=== PATIENT | female | born 1940 | race Caucasian/White ===

== ENCOUNTER → 2016-06-14 | Outpatient (CLI) | payer MEDICARE, OTHER ==
[2016-06-14 10:41] LABS: Basophils % (A) 1 %; CH 29.8; CHCM 33.6; Eosinophils # (A) 0.1 k/uL (0-0.7); Eosinophils % (A) 3 %; HCT 42.6 % (34.0-46.0); HGB 13.7 gm/dL (11.4-16.0); Luc # (Auto) 0.21; Luc % (Auto) 4; Lymphocytes # (A) 1.4 k/uL (1.0-4.8); Lymphocytes % (A) 30 %; MCH 28.8 pg (25.0-35.0); MCHC 32.2 g/dL (31.0-37.0); MCV 89.2 fL (80.0-100.0); Mean Platelet Volume 7.1; Monocytes # (A) 0.5 k/uL (0-1.0); Monocytes % (A) 10 %; Neutrophils # (A) 2.5 k/uL (1.3-7.7); Neutrophils % (A) 53 %; RBC 4.77 m/uL (3.80-5.40); RDW 13.7 % (11.5-15.5); WBC 4.8 k/uL (3.8-10.6); WBC (Perox) 5.05
[2016-06-14 11:53] LABS: Erythrocyte Sedimentation Rate 22 mm/hr (0-20)
== END ==
LOC: LABWHC1 09:45
PROVIDERS: ATTEND Internal Medicine
DX: M15.9 Polyosteoarthritis, unspecified (principal)
CPT/HCPCS: 36415; 84550; 85025; 85652; 86038; 86431

== ENCOUNTER → 2016-07-19 | Outpatient (CLI) | payer MEDICARE, OTHER ==
[2016-07-19 09:52] LABS: Basophils % (A) 0 %; CH 30.6; CHCM 34.1; Eosinophils # (A) 0.1 k/uL (0-0.7); Eosinophils % (A) 2 %; HDW 3.01; HGB 15.4 gm/dL (11.4-16.0); Luc # (Auto) 0.17; Luc % (Auto) 2; Lymphocytes % (A) 27 %; MCH 31.5 pg (25.0-35.0); MCHC 34.9 g/dL (31.0-37.0); MCV 90.2 fL (80.0-100.0); Mean Platelet Volume 6.4; Monocytes # (A) 0.6 k/uL (0-1.0); Monocytes % (A) 8 %; Neutrophils # (A) 4.4 k/uL (1.3-7.7); Neutrophils % (A) 60 %; RBC 4.88 m/uL (3.80-5.40); WBC 7.4 k/uL (3.8-10.6); WBC (Perox) 7.52
[2016-07-19 10:04] LABS: ALT 34 U/L (9-52); AST 25 U/L (14-36); Alkaline Phosphatase 109 U/L (38-126); Anion Gap 9 mmol/L; Blood Urea Nitrogen 17 mg/dL (7-17); Calcium 9.3 mg/dL (8.4-10.2); Carbon Dioxide 31 mmol/L (22-30); Chloride 102 mmol/L (98-107); Cholesterol 137 mg/dL (<200); Glucose 84 mg/dL (74-99); HDL Cholesterol 43 mg/dL (40-60); Non-African American GFR(MDRD) >60 (>60 ml/min/1.73 sqM); Potassium 5.1 mmol/L (3.5-5.1); Sodium 142 mmol/L (137-145); Total Bilirubin 0.4 mg/dL (0.2-1.3); Total Protein 7.3 g/dL (6.3-8.2); Triglycerides 139 mg/dL (<150)
[2016-07-19 10:42] LABS: Hepatitis B Core IgM Index 0.09
[2016-07-19 10:55] LABS: Hepatitis C Virus IgG Index 0.05
[2016-07-19 11:08] LABS: Hepatitis B Surface Antibody Negative (Negative); Hepatitis C Virus IgG Ab Negative (Negative)
[2016-07-19 12:56] LABS: C Reactive Protein <5.0 mg/L (<10.0)
== END | disposition home or self-care (01) ==
LOC: LABWHC1 09:01
PROVIDERS: ATTEND Internal Medicine
DX: M25.50 Pain in unspecified joint (principal); E03.9 Hypothyroidism, unspecified; I10 Essential (primary) hypertension; E78.2 Mixed hyperlipidemia
CPT/HCPCS: 36415; 80053; 80061; 84443; 85025; 86140; 86200; 86480; 86705; 86706; 86803

== ENCOUNTER → 2016-08-31 | Outpatient (CLI) | payer MEDICARE, OTHER ==
[2016-08-31 12:12] LABS: Basophils % (A) 1 %; CHCM 34.5; Eosinophils # (A) 0.2 k/uL (0-0.7); Eosinophils % (A) 2 %; HCT 42.4 % (34.0-46.0); HDW 3.04; HGB 14.4 gm/dL (11.4-16.0); Luc # (Auto) 0.12; Luc % (Auto) 2; Lymphocytes # (A) 1.8 k/uL (1.0-4.8); Lymphocytes % (A) 23 %; MCH 30.7 pg (25.0-35.0); MCV 90.4 fL (80.0-100.0); Mean Platelet Volume 6.5; Monocytes # (A) 0.4 k/uL (0-1.0); Monocytes % (A) 5 %; Neutrophils # (A) 5.3 k/uL (1.3-7.7); Neutrophils % (A) 68 %; RBC 4.69 m/uL (3.80-5.40); RDW 15.3 % (11.5-15.5); WBC 7.9 k/uL (3.8-10.6); WBC (Perox) 7.87
[2016-08-31 12:50] LABS: ALT 34 U/L (9-52); AST 32 U/L (14-36); C Reactive Protein 12.1 mg/L (<10.0); Non-African American GFR(MDRD) >60 (>60 ml/min/1.73 sqM)
[2016-08-31 14:45] LABS: Erythrocyte Sedimentation Rate 18 mm/hr (0-20)
== END | disposition home or self-care (01) ==
LOC: LABWHC1 11:09
PROVIDERS: ATTEND Internal Medicine Rheumatology
DX: M05.9 Rheumatoid arthritis with rheumatoid factor, unspecified (principal)
CPT/HCPCS: 36415; 82565; 84450; 84460; 85025; 85652; 86140

== ENCOUNTER → 2016-12-14 | Outpatient (CLI) | payer MEDICARE, OTHER ==
[2016-12-14 14:07] LABS: Basophils % (A) 1 %; CH 32.4; CHCM 34.4; Eosinophils # (A) 0.3 k/uL (0-0.7); Eosinophils % (A) 5 %; HCT 40.7 % (34.0-46.0); HDW 2.95; HGB 13.5 gm/dL (11.4-16.0); Luc # (Auto) 0.15; Luc % (Auto) 3; Lymphocytes # (A) 1.7 k/uL (1.0-4.8); Lymphocytes % (A) 30 %; MCH 31.4 pg (25.0-35.0); MCHC 33.2 g/dL (31.0-37.0); MCV 94.6 fL (80.0-100.0); Mean Platelet Volume 7.8; Monocytes # (A) 0.5 k/uL (0-1.0); Monocytes % (A) 8 %; Neutrophils % (A) 53 %; RDW 15.4 % (11.5-15.5); WBC 5.7 k/uL (3.8-10.6); WBC (Perox) 5.42
[2016-12-14 14:21] LABS: ALT 41 U/L (9-52); AST 37 U/L (14-36); C Reactive Protein 14.8 mg/L (<10.0); Non-African American GFR(MDRD) >60 (>60 ml/min/1.73 sqM)
[2016-12-14 16:00] LABS: Erythrocyte Sedimentation Rate 15 mm/hr (0-20)
== END | disposition home or self-care (01) ==
LOC: LABWHC1 13:20
PROVIDERS: ATTEND Internal Medicine Rheumatology
DX: M05.9 Rheumatoid arthritis with rheumatoid factor, unspecified (principal)
CPT/HCPCS: 36415; 82565; 84450; 84460; 85025; 85652; 86140

== ENCOUNTER → 2016-12-14 | Outpatient (CLI) | payer MEDICARE, OTHER ==
--- NOTE | 2016-12-15 11:18 | MM ---
Reason for exam: screening (asymptomatic). Last mammogram was performed 1 year ago. History: Patient is postmenopausal and history of other cancer. Family history of premenopausal breast cancer in daughter at age 40. Taking other hormone for 32 years 3 months. Physical Findings: A clinical breast exam by your physician is recommended on an annual basis and results should be correlated with mammographic findings. MG 3D Screening Mammo W/Cad Bilateral CC and MLO view(s) were taken. Prior study comparison: December 02, 2015, bilateral MG 3d screening mammo w/cad. August 21, 2013, bilateral MG screening mammo w CAD. There are scattered fibroglandular densities. Finding: There are few typically benign round calcifications in both breasts. There is no discrete abnormality. ASSESSMENT: Benign, BI-RAD 2 RECOMMENDATION: Routine screening mammogram of both breasts in 1 year.
== END | disposition home or self-care (01) ==
LOC: RADMAMWWP 13:02
PROVIDERS: ATTEND Internal Medicine
DX: Z12.31 Encounter for screening mammogram for malignant neoplasm of breast (principal)
CPT/HCPCS: 77063; G0202

== ENCOUNTER → 2017-06-19 | Outpatient (CLI) | payer MEDICARE, OTHER ==
[2017-06-19 16:01] LABS: Basophils % (A) 1 %; Eosinophils # (A) 0.2 k/uL (0-0.7); Eosinophils % (A) 3 %; HCT 40.6 % (34.0-46.0); HGB 13.8 gm/dL (11.4-16.0); Lymphocytes # (A) 1.8 k/uL (1.0-4.8); Lymphocytes % (A) 33 %; MCH 30.3 pg (25.0-35.0); MCHC 33.9 g/dL (31.0-37.0); MCV 89.3 fL (80.0-100.0); Mean Platelet Volume 7.1; Monocytes # (A) 0.3 k/uL (0-1.0); Monocytes % (A) 5 %; Neutrophils % (A) 55 %; Platelet Count 210 k/uL (150-450); RBC 4.55 m/uL (3.80-5.40); RDW 15.3 % (11.5-15.5); WBC 5.5 k/uL (3.8-10.6)
[2017-06-19 16:19] LABS: ALT 35 U/L (9-52); AST 36 U/L (14-36); C Reactive Protein 29.5 mg/L (<10.0)
[2017-06-19 17:49] LABS: Erythrocyte Sedimentation Rate 36 mm/hr (0-20)
== END | disposition home or self-care (01) ==
LOC: LABWHC1 15:23
PROVIDERS: ATTEND Internal Medicine Rheumatology
DX: M05.9 Rheumatoid arthritis with rheumatoid factor, unspecified (principal)
CPT/HCPCS: 36415; 82565; 84450; 84460; 85025; 85652; 86140

== ENCOUNTER → 2017-09-13 | Outpatient (CLI) | payer MEDICARE, OTHER ==
--- NOTE | 2017-09-13 11:49 | CT ---
EXAMINATION TYPE: CT chest w con DATE OF EXAM: 09/13/2017 COMPARISON: NONE HISTORY: Cough and weight loss CT DLP: 462 mGycm Automated exposure control for dose reduction was used. CONTRAST: CT scan of the chest is performed with IV Contrast, patient injected with 100 mL of Isovue 300. FINDINGS: LUNGS: There is a mass in the right lower lobe spiculated margins measuring approximately 5.8 x 5 x 4 .4 cm pleural extension and extensive right hilar adenopathy. Possible inflammatory change present at the posterior lateral lung base on the right. Emphysematous changes are suspected. MEDIASTINUM: There are no greater than 1 cm mediastinal lymph nodes. No pericardial effusion is see n. AORTA: No additional significant abnormality is seen. Coronary artery calcifications are present. OTHER: The spleen is thought to be enlarged. Hypodensity inferior aspect is incompletely evaluated w ithin the spleen. No adrenal mass. Liver shows low attenuation possibly due to hepatic steatosis. IMPRESSION: Findings suspicious for bronchogenic carcinoma. Suspect splenomegaly. Coronary artery di sease, emphysema. Additional findings above.
== END | disposition home or self-care (01) ==
LOC: RADCTMAIN 10:30
PROVIDERS: ATTEND Nurse Practitioner Adult Health
DX: J43.9 Emphysema, unspecified (principal); I25.10 Atherosclerotic heart disease of native coronary artery without angina pectoris; R68.83 Chills (without fever); R59.0 Localized enlarged lymph nodes
CPT/HCPCS: 82565; 84520; 71260; 36415; Q9967; 80053; 82378; 85025; 85045; 85652

== ENCOUNTER → 2017-09-23 | Outpatient (CLI) | payer MEDICARE, OTHER | END | disposition home or self-care (01) | LOC: RADPETMAIN 08:26 | PROVIDERS: ATTEND Nurse Practitioner Adult Health | DX: R91.8 Other nonspecific abnormal finding of lung field (principal); Z53.9 Procedure and treatment not carried out, unspecified reason ==

== ENCOUNTER 2017-09-27 08:44 | Inpatient (IN) | payer MEDICARE, OTHER ==
--- NOTE | 2017-09-27 11:46 | XR ---
EXAMINATION TYPE: XR chest 1V portable DATE OF EXAM: 09/27/2017 COMPARISON: CT chest from 2 weeks ago. HISTORY: Right lung mass status post biopsy and chest tube insertion. TECHNIQUE: Single frontal view of the chest is obtained. FINDINGS: There is redemonstration of right mid to lower lung lobulated mass and associated right hi lar adenopathy. There is new right-sided chest tube projecting towards lateral apex. There is suspect ed small to tiny residual right apical with chest tube in place. Left lung is clear. The cardiac silh ouette size remains within normal limits with atherosclerotic aorta. The osseous structures are int act. IMPRESSION: Residual small to tiny right apical pneumothorax with right sided small caliber chest tu be or pleural drainage catheter present after biopsy.
[2017-09-27] MEDS: HYDROcodone/APAP 5-325MG 1 EACH TAB PO PRN ×2 (12:04→22:11)
--- NOTE | 2017-09-27 12:18 | CT ---
EXAMINATION TYPE: CT chest tube insertion DATE OF EXAM: 09/27/2017 COMPARISON: CT chest 09/13/2017 HISTORY: Chest pain, pneumothorax status post lung biopsy CT DLP: 846 mGycm Automated exposure control for dose reduction was used. PROCEDURE:The anterior second intercostal space was localized using CT and the skin overlying was pre pped and draped and Lidocaine used for local anesthesia, skin rabia made with a scalpel. Using trocar technique a 9-Kiswahili catheter was introduced into the pleural space. Catheter was fixed to the skin and a sterile dressing placed. Catheter was attached to one-way valve. Hemostasis achieved. Patie nt remained in stable condition. Post procedure chest CT shows reinflation of the lung, chest tube c oursing towards the apex laterally, chest x-ray pending. IMPRESSION: Status post CT chest tube insertion. This procedure performed by the undersigned
--- NOTE | 2017-09-27 13:10 | CT ---
EXAMINATION TYPE: CT biopsy lung RT DATE OF EXAM: 09/27/2017 HISTORY: Lung mass right lower lobe COMPARISON: NONE Maximal barrier technique was utilized. The skin overlying a suitable path to the lesion was localiz ed using CT and the overlying skin was prepped and draped. Lidocaine used for local anesthesia. A s kin rabia made with a scalpel. Using CT guidance, access was gained to the lesion with a 18-gauge nee dle coaxially through 17-gauge guide. Are specimen submitted to pathology in formalin. 2 passes were performed in all. Following the procedure sizable pneumothorax was noted. Procedure chest CT performed and subsequently decision-making to perform CT-guided chest tube placeme nt. See that report. Hemostasis achieved following lung biopsy. IMPRESSION: SUCCESSFUL CT GUIDED BIOPSY. PATHOLOGY PENDING. THIS PROCEDURE WAS PERFORMED BY THE UNDERSIGNED. Po stprocedural pneumothorax.
[2017-09-27] MEDS ORDERED: traMADol 50 MG TAB PO PRN (13:11)
[2017-09-27] MEDS ORDERED: NALOXONE 0.4 MG/ML 1 ML VIAL IV PRN (13:11)
[2017-09-27] MEDS ORDERED: MORPHINE SULFATE 2 MG/ML SYRINGE IV PRN (13:11)
[2017-09-27 13:22] LABS: Mean Platelet Volume 6.7; Platelet Count 301 k/uL (150-450)
--- NOTE | 2017-09-27 13:25 | P.HPIM ---
History of Present Illness H&P Date: 09/27/17 Chief Complaint: Lung mass 76-year-old female with history of right lower lobe lung mass presented for a lung biopsy, biopsy was done by IR, after biopsy was completed patient developed pneumothorax as well as collapsed lung. A chest tube on the right side was placed. Currently patient patient is only having chest pain on the right side where the chest tube was placed. Patient was subsequently admitted to the hospital for subsequent observation and management. She was found to have a right lower lobe lung mass early this month after having chronic cough for the last 4-5 months. The cough is mainly dry. No fevers or chills. No nausea or vomiting, no abdominal pain or chest pain. No dizziness, no diarrhea , no hemoptysis. Review of Systems 12 point review of system performed, negative except for HPI Past Medical History Past Medical History: Cancer, Hyperlipidemia, Hypertension, Rheumatoid Arthritis (RA), Skin Disorder, Thyroid Disorder Additional Past Medical History / Comment(s): melanoma - skin lesion on rt cheek ,lung mass is being investigated History of Any Multi-Drug Resistant Organisms: None Reported Past Surgical History: Back Surgery, Orthopedic Surgery Additional Past Surgical History / Comment(s): skin lesion removed, lt knee replacement Past Anesthesia/Blood Transfusion Reactions: No Reported Reaction Additional Past Anesthesia/Blood Transfusion Reaction / Comment(s): no bld transfusion Past Psychological History: No Psychological Hx Reported Smoking Status: Former smoker Past Alcohol Use History: None Reported Additional Past Alcohol Use History / Comment(s): quit 2001 Past Drug Use History: None Reported - Past Family History Son(s) Family Medical History: Cancer Additional Family Medical History / Comment(s): leukemia Daughter(s) Family Medical History: Cancer Additional Family Medical History / Comment(s): breast Mother Family Medical History: Cancer Additional Family Medical History / Comment(s): lymphoma Medications and Allergies Home Medications Medication Instructions Recorded Confirmed Type Aspirin [Children's Aspirin] 81 mg PO DAILY 09/19/17 09/19/17 History Celecoxib [CeleBREX] 200 mg PO DAILY 09/19/17 09/19/17 History Cholecalciferol (Vitamin D3) 2,000 unit PO DAILY 09/19/17 09/19/17 History [Vitamin D3] Folic Acid 1 mg PO DAILY 09/19/17 09/19/17 History Levothyroxine Sodium [Synthroid] 112 mcg PO DAILY 09/19/17 09/19/17 History Methotrexate Sodium [Methotrexate] 2.5 mg PO DAILY 09/19/17 09/19/17 History Simvastatin [Zocor] 10 mg PO DAILY 09/19/17 09/19/17 History amLODIPine [Norvasc] 5 mg PO DAILY 09/19/17 09/19/17 History Allergies Allergy/AdvReac Type Severity Reaction Status Date / Time No Known Allergies Allergy Verified 09/19/17 09:27 Physical Exam Vitals: Vital Signs Temp Pulse Resp BP Pulse Ox 09/27/17 12:35 85 18 115/68 98 09/27/17 12:20 83 18 114/57 98 09/27/17 12:05 87 18 109/65 98 09/27/17 11:51 98.0 F 84 18 98/67 96 Constitutional: Thin, no acute distress, conversant, pleasant Eyes:Anicteric sclerae, moist conjunctiva, no lid-lag, PERRLA, ENMT: Oropharynx clear, no erythema, exudates Neck: Supple, FROM, no masses, or JVD, No carotid bruits, No thyromegaly Lungs: Diminished breath sounds in the right, clear on the left, right sided chest tube in place., Normal respiratory effort, no accessory muscle use Cardiovascular: Heart regular in rate and rhythm, No murmurs, gallops, or rubs, No peripheral edema Abdominal: Soft, Nontender, no guarding, rebound or rigidity, Normoactive bowel sounds, No hepatomegaly, No splenomegaly, No palpable mass Skin: Normal temperature, tone, texture, turgor, no induration, No subcutaneous nodules, No rash, lesions, No ulcers Extremities: No digital cyanosis, No clubbing, Pedal pulses intact and symmetrical, Radial pulses intact and symmetrical, No calf tenderness Psychiatric: Alert and oriented to person, place and time, appropriate affect, intact judgement Neuro: Muscles Strength 5/5 in all 4 extremities, Sensation to light touch grossly present throughout, Cranial nerves II-XII grossly intact, no focal sensory deficits Assessment and Plan Plan: #1 Lung mass, right lower lobe Biopsy taken Awaiting results Patient was scheduled to have a PET scan this Monday, contacted the radiology department, this cannot be done as an inpatient. #2 Right sided pneumothorax/collapsed lung Status post chest tube placement Consult pulmonary #3 Hyperlipidemia, Essential hypertension, Rheumatoid Arthritis (RA), Hypothyroidism: All stable Resume home meds. #4 DVT prophylaxis: Lovenox and SCDs
[2017-09-27 13:30] LABS: INR 1.1 (<1.2); Prothrombin Time 10.7 sec (9.0-12.0)
--- NOTE | 2017-09-27 13:44 | XR ---
EXAMINATION TYPE: XR chest 1V portable DATE OF EXAM: 09/27/2017 COMPARISON: Chest x-ray earlier today. HISTORY: Post biopsy pneumothorax. TECHNIQUE: Single frontal view of the chest is obtained. FINDINGS: There is redemonstration of right apical small caliber chest tube or pleural drainage cath eter. There is perhaps tiny residual right apical pneumothorax versus focal scarring improved from pr ior. Right hilar mass or neoplasm is redemonstrated. Background chronic emphysematous change is redem onstrated. Cardiac silhouette size is stable and within normal limits without sclerotic aorta. Osseou s structures are demineralized. IMPRESSION: Improving right-sided pneumothorax.
[2017-09-27 16:48] VITALS: BMI 17.6
[2017-09-27 16:49] VITALS: RESP 16
--- NOTE | 2017-09-27 16:50 | P.CNPUL ---
History of Present Illness Consult date: 09/27/17 Requesting physician: Pj Santos Reason for consult: cough, lung mass, abnormal CXR/CT, other Chief complaint: Right lower lobe lung mass, status post CT-guided biopsy, pneumothorax History of present illness: Mrs. Santoyo is a 76-year-old white female patient of Dr. Zhang , who presented on 09/27/2017 for biopsy of right lower lobe lung mass by interventional radiology, and he was a successful CT-guided biopsy. Patient did sustain a postprocedural right-sided pneumothorax, and a Heimlich chest tube was inserted with a 1-way valve. Chest x-ray taken after placement of the chest tube showed small right apical pneumothorax, repeat chest x-ray in the afternoon showed improving right-sided pneumothorax. Patient remained hemodynamically stable, chest tube is secured to the chest wall, no subcutaneous emphysema noted. Lung sounds are clear bilaterally, patient is calm and comfortable, she is resting on the gurney, in the extended stay unit, she is awaiting a bed on the medical surgical floor. Sinus rhythm with a rate of 70 BPM. Normotensive. On 2 L per nasal cannula pulse ox is 99%. Patient went to see nurse practitioner Dr. Pressley, [employer], at Dr. Zhang's office back at the end of August with complaints of persistent cough for a period of 4-5 months , weight loss. She has a prior history of smoking. Outpatient computed tomography scan of the chest revealed right lower lobe spiculated mass measuring 5.8 x 5 x 4.4 with pleural extension, and extensive right hilar adenopathy on the background of emphysematous changes. Patient was scheduled for outpatient PET scan, however on the day of her appointment the PET scan machine was not functioning, and her appointment was rescheduled for this coming Monday on 09/30/2017. Denied any hemoptysis. Denied any chest pain. She recently had a melanoma resected from her right cheek in [place]. Other medical history hypertension, hyperlipidemia, rheumatoid arthritis, hypothyroidism. Were consulted in regards to pulmonary management and management of the Heimlich chest tube Review of Systems All systems: negative Constitutional: Reports weight loss, Denies chills, Denies fever Eyes: denies blurred vision, denies pain Ears, nose, mouth and throat: Denies headache, Denies sore throat Cardiovascular: Denies chest pain, Denies shortness of breath Respiratory: Reports cough Gastrointestinal: Denies abdominal pain, Denies diarrhea, Denies nausea, Denies vomiting Genitourinary: Denies dysuria, Denies hematuria Musculoskeletal: Denies myalgias Integumentary: Denies pruritus, Denies rash Neurological: Denies numbness, Denies weakness Psychiatric: Denies anxiety, Denies depression Endocrine: Denies fatigue, Denies weight change Past Medical History Past Medical History: Cancer, Hyperlipidemia, Hypertension, Rheumatoid Arthritis (RA), Skin Disorder, Thyroid Disorder Additional Past Medical History / Comment(s): melanoma - skin lesion on rt cheek ,lung mass is being investigated History of Any Multi-Drug Resistant Organisms: None Reported Past Surgical History: Back Surgery, Orthopedic Surgery Additional Past Surgical History / Comment(s): skin lesion removed, lt knee replacement Past Anesthesia/Blood Transfusion Reactions: No Reported Reaction Additional Past Anesthesia/Blood Transfusion Reaction / Comment(s): no bld transfusion Past Psychological History: No Psychological Hx Reported Smoking Status: Former smoker Past Alcohol Use History: None Reported Additional Past Alcohol Use History / Comment(s): quit 2001 Past Drug Use History: None Reported - Past Family History Son(s) Family Medical History: Cancer Additional Family Medical History / Comment(s): leukemia Daughter(s) Family Medical History: Cancer Additional Family Medical History / Comment(s): breast Mother Family Medical History: Cancer Additional Family Medical History / Comment(s): lymphoma Medications and Allergies Home Medications Medication Instructions Recorded Confirmed Type Aspirin [Children's Aspirin] 81 mg PO DAILY 09/19/17 09/27/17 History Celecoxib [CeleBREX] 200 mg PO DAILY 09/19/17 09/27/17 History Cholecalciferol (Vitamin D3) 2,000 unit PO DAILY 09/19/17 09/27/17 History [Vitamin D3] Folic Acid 1 mg PO DAILY 09/19/17 09/27/17 History Levothyroxine Sodium [Synthroid] 112 mcg PO DAILY 09/19/17 09/27/17 History Methotrexate Sodium [Methotrexate] 7.5 mg PO DIRECTED 09/19/17 09/27/17 History Simvastatin [Zocor] 10 mg PO DAILY 09/19/17 09/27/17 History amLODIPine [Norvasc] 5 mg PO DAILY 09/19/17 09/27/17 History Allergies Allergy/AdvReac Type Severity Reaction Status Date / Time No Known Allergies Allergy Verified 09/27/17 14:32 Physical Exam Vitals: Vital Signs Temp Pulse Resp BP Pulse Ox 09/27/17 13:35 78 18 107/67 99 09/27/17 13:10 70 18 107/58 97 09/27/17 12:35 85 18 115/68 98 09/27/17 12:20 83 18 114/57 98 09/27/17 12:05 87 18 109/65 98 09/27/17 11:51 98.0 F 84 18 98/67 96 Intake and Output 09/27/17 09/27/17 09/27/17 06:59 14:59 22:59 Intake Total 120 Balance 120 Intake: Oral 120 GENERAL EXAM: Alert, pleasant, 76-year-old thin white female, comfortable in no apparent distress. HEAD: Normocephalic/atraumatic. EYES: Normal reaction of pupils, equal size. Conjunctiva pink, sclera white. NOSE: Clear with pink turbinates. THROAT: No erythema or exudates. NECK: No masses, no JVD, no thyroid enlargement, no adenopathy. CHEST: No chest wall deformity. Symmetrical expansion. There is a Heimlich chest tube present on the right anterior chest wall, no subcutaneous emphysema noted. LUNGS: Equal air entry with no crackles, wheeze, rhonchi or dullness. CVS: Regular rate and rhythm, normal S1 and S2, no gallops, no murmurs, no rubs ABDOMEN: Soft, nontender. No hepatosplenomegaly, normal bowel sounds, no guarding or rigidity. EXTREMITIES: No clubbing, no edema, no cyanosis, 2+ pulses and upper and lower extremities. MUSCULOSKELETAL: Muscle strength and tone normal. SPINE: No scoliosis or deformity SKIN: No rashes CENTRAL NERVOUS SYSTEM: Alert and oriented -3. No focal deficits, tone is normal in all 4 extremities. PSYCHIATRIC: Alert and oriented -3. Appropriate affect. Intact judgment and insight. Results - Laboratory Findings CBC and BMP: 09/27/17 09:10 PT/INR, D-dimer PT 10.7 sec (9.0-12.0) 09/27/17 09:10 INR 1.1 (<1.2) 09/27/17 09:10 - Diagnostic Findings Chest x-ray: report reviewed, image reviewed CT scan - chest: report reviewed, image reviewed Assessment and Plan Plan: Assessment: #1. Right lower lobe lung mass, with extensive right hilar adenopathy, status post CT-guided biopsy, pathology results are pending #2. Postprocedural pneumothorax, with placement of right-sided Heimlich chest tube with one way valve and subsequent chest x-rays showed reexpansion of the right lung and improving pneumothorax #3. Persistent cough, weight loss, related to the above mentioned lung mass #4. Nicotine dependence, currently in remission #5. Hypertension, hyperlipidemia #6. Hypothyroidism #7. Rheumatoid arthritis, on methotrexate #8. Recent resection of melanoma on the right cheek #9. Probable COPD, underlying lung function is unknown Plan: We will obtain a repeat chest x-ray in the morning, follow-up chest x-ray post insertion of right-sided Heimlich chest tube shows improving pneumothorax. Patient is hemodynamically stable, oxygenation is stable on 2 L per nasal cannula, encourage deep breathing and coughing. Awaiting results of the pathology. Pain management. Patient may be discharged home with the chest tube in place next 24 hours. And followed up on outpatient basis. She has an upcoming PET scan appointment on 09/30/2017. We will continue to follow, GI and DVT prophylaxis. I performed a history & physical examination of the patient and discussed their management with my nurse practitioner, Maile Dill. I reviewed the nurse practitioner's note and agree with the documented findings and plan of care. Lung sounds are clear. The findings and the impression was discussed with the patient. I attest to the documentation by the nurse practitioner. Time with Patient: Greater than 30
[2017-09-27] MEDS: amLODIPine 5 MG TAB PO SCH (17:04)
[2017-09-27] MEDS: MELOXICAM 7.5 MG TAB PO SCH (17:05)
[2017-09-27] MEDS: ASPIRIN 81 MG PO SCH (17:05)
[2017-09-27] MEDS: SODIUM CHLORIDE 0.9% 1,000 ML IV SCH (17:06)
[2017-09-28] MEDS ORDERED: LEVOTHYROXINE 112 MCG TAB PO SCH (06:30)
[2017-09-28 06:33] VITALS: BP 118/76; PULSE 71; TEMP 98.3
[2017-09-28] MEDS: ASPIRIN 81 MG PO SCH (07:38)
[2017-09-28] MEDS: HYDROcodone/APAP 5-325MG 1 EACH TAB PO PRN (07:49)
[2017-09-28] MEDS: amLODIPine 5 MG TAB PO SCH (07:50)
[2017-09-28] MEDS: MELOXICAM 7.5 MG TAB PO SCH (07:50)
[2017-09-28 08:07] LABS: Basophils % (A) 0 %; Eosinophils # (A) 0.2 k/uL (0-0.7); Eosinophils % (A) 3 %; HCT 35.9 % (34.0-46.0); HGB 11.6 gm/dL (11.4-16.0); Lymphocytes # (A) 1.2 k/uL (1.0-4.8); Lymphocytes % (A) 25 %; MCH 29.8 pg (25.0-35.0); MCHC 32.3 g/dL (31.0-37.0); MCV 92.1 fL (80.0-100.0); Mean Platelet Volume 6.8; Monocytes # (A) 0.5 k/uL (0-1.0); Monocytes % (A) 10 %; Neutrophils # (A) 2.7 k/uL (1.3-7.7); Neutrophils % (A) 59 %; Platelet Count 245 k/uL (150-450); RDW 15.1 % (11.5-15.5); WBC 4.6 k/uL (3.8-10.6)
[2017-09-28 08:26] LABS: Anion Gap 8 mmol/L; Blood Urea Nitrogen 11 mg/dL (7-17); Calcium 8.9 mg/dL (8.4-10.2); Carbon Dioxide 29 mmol/L (22-30); Chloride 101 mmol/L (98-107); Glucose 93 mg/dL (74-99); Magnesium 1.9 mg/dL (1.6-2.3); Phosphorus 3.8 mg/dL (2.5-4.5); Potassium 4.4 mmol/L (3.5-5.1); Sodium 138 mmol/L (137-145)
--- NOTE | 2017-09-28 08:29 | XR ---
EXAMINATION TYPE: XR chest 2V DATE OF EXAM: 09/28/2017 COMPARISON: 09/27/2017 HISTORY: Follow-up pneumothorax TECHNIQUE: Frontal and lateral views of the chest are obtained. FINDINGS: Scattered senescent parenchymal changes noted. Hyperinflation compatible with COPD. Tiny right apical pneumothorax persists which is smaller in size relative to the prior examination. Mass right midlung zone is unchanged. Heart size is stable. Mediastinal structures are stable and grossly unremarkable. No evidence for hilar prominence. Degenerative changes dorsal spine. IMPRESSION: 1. Tiny right apical pneumothorax persists which is smaller in size relative to the prior examination . Mass right midlung zone is unchanged.
[2017-09-28] MEDS: SODIUM CHLORIDE 0.9% 1,000 ML IV SCH (08:46)
[2017-09-28] MEDS ORDERED: FOLIC ACID 1 MG TAB PO SCH (09:00)
[2017-09-28] MEDS ORDERED: METHOTREXATE SODIUM 2.5 MG TAB PO SCH (09:00)
[2017-09-28] MEDS ORDERED: ATORVASTATIN 10 MG TAB PO SCH (09:00)
[2017-09-28] MEDS ORDERED: ENOXAPARIN 40 MG/0.4 ML SYRINGE SQ SCH (09:00)
[2017-09-28] MEDS ORDERED: CHOLECALCIFEROL 1,000 UNIT TAB PO SCH (09:00)
--- NOTE | 2017-09-28 10:43 | P.DS ---
Providers Date of admission: 09/27/17 13:11 Expected date of discharge: 09/28/17 Attending physician: Meli Bynum MD Consults: 09/27/17 12:23 Consult Physician Stat Consulting Provider: Meli Bynum Consult Reason/Comments: please admit to sound physicians. Do you want consulting provider notified?: Already Contacted 09/27/17 13:13 Consult Physician Urgent Consulting Provider: Rg Gutierrez Consult Reason/Comments: pneumothorax Do you want consulting provider notified?: Yes Primary care physician: [facility] Course: 76-year-old female with history of right lower lobe lung mass presented for a lung biopsy, biopsy was done by IR, after biopsy was completed patient developed pneumothorax as well as collapsed lung. A chest tube on the right side was placed. Currently patient patient is only having chest pain on the right side where the chest tube was placed. Patient was subsequently admitted to the hospital for subsequent observation and management. She was found to have a right lower lobe lung mass early this month after having chronic cough for the last 4-5 months. The cough is mainly dry. No fevers or chills. No nausea or vomiting, no abdominal pain or chest pain. No dizziness, no diarrhea , no hemoptysis. Patient was admitted to the hospital for further monitoring. Follow-up x-ray showed reexpansion of the lung and decreasing size of the pneumothorax. Patient was evaluated by pulmonary, Dr. Rivers who advised patient to follow up in the office with him on Monday so that he can clamp the tube. If pneumothorax is not to recur on Monday then the plan would be to take the tube out. I communicated that with the patient who verbalized understanding. She will be discharged home in stable condition. He is given prescription for [place] for pain control. Discharge diagnoses Right lower lobe lung mass Iatrogenic pneumothorax secondary to lung biopsy status post chest tube insertion. Plan - Discharge Summary New Discharge Prescriptions: Continue Methotrexate Sodium [Methotrexate] 7.5 mg PO DIRECTED Folic Acid 1 mg PO DAILY Cholecalciferol (Vitamin D3) [Vitamin D3] 2,000 unit PO DAILY amLODIPine [Norvasc] 5 mg PO DAILY Levothyroxine Sodium [Synthroid] 112 mcg PO DAILY Aspirin [Children's Aspirin] 81 mg PO DAILY Simvastatin [Zocor] 10 mg PO DAILY Celecoxib [CeleBREX] 200 mg PO DAILY Discharge Medication List Aspirin [Children's Aspirin] 81 mg PO DAILY 09/19/17 [History] Celecoxib [CeleBREX] 200 mg PO DAILY 09/19/17 [History] Cholecalciferol (Vitamin D3) [Vitamin D3] 2,000 unit PO DAILY 09/19/17 [History] Folic Acid 1 mg PO DAILY 09/19/17 [History] Levothyroxine Sodium [Synthroid] 112 mcg PO DAILY 09/19/17 [History] Methotrexate Sodium [Methotrexate] 7.5 mg PO DIRECTED 09/19/17 [History] Simvastatin [Zocor] 10 mg PO DAILY 09/19/17 [History] amLODIPine [Norvasc] 5 mg PO DAILY 09/19/17 [History] Follow up Appointment(s)/Referral(s): Rg Gutierrez MD [STAFF PHYSICIAN] - 1 Week Activity/Diet/Wound Care/Special Instructions: PT NEEDS TO BE SEEN ON MONDAY FOR CHEST TUBE CLAMPING AND/OR REMOVAL
--- NOTE | 2017-09-28 12:07 | P.PN ---
Subjective Progress Note Date: 09/28/17 Principal diagnosis: Right lower lobe lung mass, status post CT-guided biopsy, postprocedural pneumothorax, with placement of right-sided pigtail chest tube with Heimlich valve Mrs. Santoyo is a 76-year-old white female patient of Dr. Zhang , who presented on 09/27/2017 for biopsy of right lower lobe lung mass by interventional radiology, and he was a successful CT-guided biopsy. Patient did sustain a postprocedural right-sided pneumothorax, and a Heimlich chest tube was inserted with a 1-way valve. Chest x-ray taken after placement of the chest tube showed small right apical pneumothorax, repeat chest x-ray in the afternoon showed improving right-sided pneumothorax. Patient remained hemodynamically stable, chest tube is secured to the chest wall, no subcutaneous emphysema noted. Lung sounds are clear bilaterally, patient is calm and comfortable, she is resting on the gurney, in the extended stay unit, she is awaiting a bed on the medical surgical floor. Sinus rhythm with a rate of 70 BPM. Normotensive. On 2 L per nasal cannula pulse ox is 99%. Patient went to see nurse practitioner Dr. Pressley, HOP TRAINER-C, at Dr. Zhang's office back at the end of August with complaints of persistent cough for a period of 4-5 months , weight loss. She has a prior history of smoking. Outpatient computed tomography scan of the chest revealed right lower lobe spiculated mass measuring 5.8 x 5 x 4.4 with pleural extension, and extensive right hilar adenopathy on the background of emphysematous changes. Patient was scheduled for outpatient PET scan, however on the day of her appointment the PET scan machine was not functioning, and her appointment was rescheduled for this coming Monday on 09/30/2017. Denied any hemoptysis. Denied any chest pain. She recently had a melanoma resected from her right cheek in [place]. Other medical history hypertension, hyperlipidemia, rheumatoid arthritis, hypothyroidism. Were consulted in regards to pulmonary management and management of the Heimlich chest tube. On 09/20/2017 patient seen again in follow-up on medical surgical floor. She is resting comfortably in bed, her pain reasonably controlled with oral [place]. She is awake, alert, oriented 3, lung sounds are clear. This morning's chest x -ray has been reviewed by Dr. Rivers, and showed tiny right apical pneumothorax , which is smaller in size relative to the prior exams. She has been up ambulating, and tolerating activity well. No acute events overnight, his blood work was reviewed, and has been unremarkable. From pulmonary/critical care standpoint she is stable for discharge home today with the pigtail chest tube in place with a Heimlich valve, she will have it removed by Dr. Rivers on Monday in the office. The pathology report hopefully will be available for review at that time as well. In the PET scan appointment is scheduled for this coming Monday on 09/30/2017. Objective - Vital Signs Vital signs: Vital Signs Temp 98.3 F 09/28/17 06:33 Pulse 71 09/28/17 06:33 Resp 16 09/28/17 06:33 BP 118/76 09/28/17 06:33 Pulse Ox 98 09/28/17 06:33 Intake & Output 09/27/17 09/28/17 09/28/17 18:59 06:59 18:59 Intake Total 960 950 Balance 960 950 Weight 49.5 kg 49.5 kg Intake: Oral 960 950 Other: # Voids 1 2 2 - Exam GENERAL EXAM: Alert, pleasant, 76-year-old thin white female, comfortable in no apparent distress. HEAD: Normocephalic/atraumatic. EYES: Normal reaction of pupils, equal size. Conjunctiva pink, sclera white. NOSE: Clear with pink turbinates. THROAT: No erythema or exudates. NECK: No masses, no JVD, no thyroid enlargement, no adenopathy. CHEST: No chest wall deformity. Symmetrical expansion. There is a pigtail chest tube present on the right anterior chest wall connected to a Heimlich valve, no subcutaneous emphysema noted. LUNGS: Equal air entry with no crackles, wheeze, rhonchi or dullness. CVS: Regular rate and rhythm, normal S1 and S2, no gallops, no murmurs, no rubs ABDOMEN: Soft, nontender. No hepatosplenomegaly, normal bowel sounds, no guarding or rigidity. EXTREMITIES: No clubbing, no edema, no cyanosis, 2+ pulses and upper and lower extremities. MUSCULOSKELETAL: Muscle strength and tone normal. SPINE: No scoliosis or deformity SKIN: No rashes CENTRAL NERVOUS SYSTEM: Alert and oriented -3. No focal deficits, tone is normal in all 4 extremities. PSYCHIATRIC: Alert and oriented -3. Appropriate affect. Intact judgment and insight. - Labs CBC & Chem 7: 09/28/17 07:32 09/28/17 07:32 Assessment and Plan Plan: Assessment: #1. Right lower lobe lung mass, with extensive right hilar adenopathy, status post CT-guided biopsy, pathology results are pending #2. Postprocedural pneumothorax, with placement of right-sided pigtail chest tube with one way valve and subsequent chest x-rays showed reexpansion of the right lung and improving pneumothorax #3. Persistent cough, weight loss, related to the above mentioned lung mass #4. Nicotine dependence, currently in remission #5. Hypertension, hyperlipidemia #6. Hypothyroidism #7. Rheumatoid arthritis, on methotrexate #8. Recent resection of melanoma on the right cheek #9. Probable COPD, underlying lung function is unknown Plan: Follow-up chest x-ray from this morning shows improving pneumothorax, only residual tiny pneumothorax remains. Patient can be discharged home with the pigtail chest tube in place, continue the Heimlich valve. Pathology reports are still pending at this time, otherwise patient remains stable. She will be seen on Monday by Dr. Rivers, and with which time, the pigtail chest tube will be removed, and a follow-up chest x-ray will be obtained in the office. And has upcoming appointment on 09/02/2017 for PET scan. I performed a history & physical examination of the patient and discussed their management with my nurse practitioner, Maile Dill. I reviewed the nurse practitioner's note and agree with the documented findings and plan of care. Lung sounds are clear. The findings and the impression was discussed with the patient. I attest to the documentation by the nurse practitioner. Time with Patient: Less than 30
--- NOTE | 2017-10-07 09:48 | CDI ---
Last Revision, March 2017 Documentation Clarification Form Date: 10/07/2017 12:00:00 AM From: Lissette Alamo Phone: If you have question, contact Asha Hook Filters Assembler at M-F 8:30 am to 6pm Admit Date: 09/27/2017 1:11:00 PM Patient Name: Joselyn Santoyo Visit Number: [id number] Discharge Date: 10/07/17 ATTENTION: The Clinical Documentation Specialists (CDI) and [facility] Coding Staff appreciate your assistance in clarifying documentation. Please respond to the clarification below the line at the bottom and electronically sign. The CDI & [facility] Coding staff will review the response and follow-up if needed. Please note: Queries are made part of the Legal Health Record. If you have any questions, please contact the author of this message via ITS. Dr. Meli Bynum Ms Santoyo was brought in for a biopsy of a right lower lung mass. The final diagnosis of the pathology report states: Squamous cell carcinoma In your professional opinion, do you agree with the pathology report specifying lung mas as squamous cell carcinoma? Yes No Other (please specify) Unable to determine Agree MTDD
== END 2017-09-28 12:51 | disposition home or self-care (01) | DRG 181 ==
LOC: RADPROMAIN 08:44 → 5ONC 13:11 → 4MS4W 15:17
PROVIDERS: ADMIT Internal Medicine; ATTEND Internal Medicine
PROC: 0B9F3ZX Drainage of Right Lower Lung Lobe, Percutaneous Approach, Diagnostic (ICD-10-PCS; principal; 2017-09-27)
DX: C34.31 Malignant neoplasm of lower lobe, right bronchus or lung (principal); J95.811 Postprocedural pneumothorax; E03.9 Hypothyroidism, unspecified; E78.5 Hyperlipidemia, unspecified; F17.201 Nicotine dependence, unspecified, in remission; I10 Essential (primary) hypertension; M06.9 Rheumatoid arthritis, unspecified; Z96.652 Presence of left artificial knee joint; Z79.82 Long term (current) use of aspirin; Z79.899 Other long term (current) drug therapy; Z80.6 Family history of leukemia; Z85.820 Personal history of malignant melanoma of skin; Z80.7 Family history of other malignant neoplasms of lymphoid, hematopoietic and related tissues; Y83.8 Other surgical procedures as the cause of abnormal reaction of the patient, or of later complication, without mention of misadventure at the time of the procedure; Y78.3 Surgical instruments, materials and radiological devices (including sutures) associated with adverse incidents; Y92.238 Other place in hospital as the place of occurrence of the external cause
CPT/HCPCS: 32551; 36415; 71045; 71046; 77012; 80048; 83735; 84100; 85025; 85049; 85610; 88305; 88341; 88342

== ENCOUNTER → 2017-09-30 | Outpatient (CLI) | payer MEDICARE, OTHER ==
--- NOTE | 2017-10-01 12:13 | PE ---
Nuclear medicine PET/CT HISTORY: Right lower lobe lung mass, lung cancer, initial Patient received millicuries F-18 FDG intravenously and delayed scanning was performed from the skul l base to the mid thighs. An attenuation correction and localization CT scan was also performed. Exam correlated to CT chest dated 09/13/2017 Neck and chest: Right-sided pleural drainage catheter is in place. There is a small right pleural eff usion. Large mass in the right lower lobe is again noted, there is associated right hilar adenopathy and these areas show associated hypermetabolic uptake, SUV is approximately 8-12 retrocaval pretrache al lymph node is present with associated hypermetabolic uptake, SUV is only 3. Abdomen pelvis: No evident adrenal mass. No liver mass or retroperitoneal adenopathy. No suspicious h ypermetabolic uptake. There is some bowel activity suspected to be physiologic. Osseous structures are within normal limits. There is no hypermetabolic uptake. Degenerative disc prudencio nges are present in the visualized spine. IMPRESSION: Findings compatible with patient's history of squamous cell carcinoma as described. Pleur al effusion may be secondary to patient's biopsy and pleural drainage catheter placement but has deve loped in the interval.
== END | disposition home or self-care (01) ==
LOC: RADPETMAIN 13:25
PROVIDERS: ATTEND Nurse Practitioner Adult Health
DX: J90 Pleural effusion, not elsewhere classified (principal); Z46.82 Encounter for fitting and adjustment of non-vascular catheter
CPT/HCPCS: 78815; A9552

== ENCOUNTER → 2017-10-12 | Outpatient (CLI) | payer MEDICARE, OTHER ==
--- NOTE | 2017-10-12 14:20 | MR ---
EXAMINATION TYPE: MR brain wo/w con DATE OF EXAM: 10/12/2017 COMPARISON: None HISTORY: Lung CA and DREW,Gadavist 5ml TECHNIQUE: Multiplanar, multisequence images of the brain and brainstem is performed without and with IV contras t, utilizing 5 mL intravenous Gadavist . FINDINGS: Diffusion weighted images demonstrate no evidence of a recent infarct or other diffusion ab normality. Confluent and scattered hyperintensities are present within the periventricular and deep w jose matter on inversion recovery and T2-weighted sequences. There is no extra-axial fluid collection . The ventricular system and cisternal spaces are normal in size and appearance. The brain volume i s age appropriate, cortical atrophy is likely age-related. Midline structures demonstrate normal morphology, there is a partially empty sella. The craniocervic al junction appears within normal limits. Post contrast images demonstrate no abnormal enhancement. The dural venous sinuses appear patent. The visualized sinuses are clear and the globes are intact. IMPRESSION: Age-related changes of atrophy and probable chronic small vessel ischemia
== END | disposition home or self-care (01) ==
LOC: RADMRIMAIN 13:29
PROVIDERS: ATTEND Internal Medicine Hematology & Oncology
DX: G31.9 Degenerative disease of nervous system, unspecified (principal); R51 Headache; C34.31 Malignant neoplasm of lower lobe, right bronchus or lung
CPT/HCPCS: 70553; A9581

== ENCOUNTER → 2017-12-11 | Outpatient (CLI) | payer MEDICARE, OTHER ==
--- NOTE | 2017-12-11 09:56 | FL ---
ESOPHOGRAM. HISTORY: Dysphagia Esophagram was performed per the air contrast technique. The patient swallowed barium and effervesce nt crystals without difficulty or delay. Esophageal peristalsis and motility appear to be within normal limits. There is no evidence for filling defect, mass or diverticulum. Very small reducible sliding type hiatal hernia noted. Subsequently single contrast cervical esophagram was performed which fails demonstrate evidence for a spiration penetration or mass. IMPRESSION: 1.Very small reducible sliding type hiatal hernia noted.
== END | disposition home or self-care (01) ==
LOC: RADFLWHC 09:24
PROVIDERS: ATTEND Internal Medicine
DX: K44.9 Diaphragmatic hernia without obstruction or gangrene (principal)
CPT/HCPCS: 74220

== ENCOUNTER → 2018-01-11 | Outpatient (CLI) | payer MEDICARE, OTHER ==
[2018-01-11 13:19] LABS: Anisocytosis Slight; Basophils % (A) 0 %; Eosinophils # (A) 0.5 k/uL (0-0.7); Eosinophils % (A) 11 %; HCT 36.8 % (34.0-46.0); HGB 12.1 gm/dL (11.4-16.0); Lymphocytes # (A) 0.3 k/uL (1.0-4.8); Lymphocytes % (A) 7 %; MCHC 32.8 g/dL (31.0-37.0); MCV 88.3 fL (80.0-100.0); Monocytes # (A) 0.3 k/uL (0-1.0); Monocytes % (A) 7 %; Neutrophils # (A) 2.9 k/uL (1.3-7.7); Neutrophils % (A) 72 %; Platelet Count 213 k/uL (150-450); Poikilocytosis Slight; RBC 4.17 m/uL (3.80-5.40); RDW 16.7 % (11.5-15.5); WBC 4.1 k/uL (3.8-10.6)
[2018-01-11 13:46] LABS: ALT 26 U/L (9-52); AST 34 U/L (14-36); C Reactive Protein 27.7 mg/L (<10.0)
[2018-01-11 14:18] LABS: Erythrocyte Sedimentation Rate 53 mm/hr (0-20)
== END | disposition home or self-care (01) ==
LOC: LABWHC1 11:56
PROVIDERS: ATTEND Internal Medicine Rheumatology
DX: M06.9 Rheumatoid arthritis, unspecified (principal)
CPT/HCPCS: 36415; 82565; 84450; 84460; 85025; 85652; 86140

== ENCOUNTER → 2018-02-01 | Outpatient (CLI) | payer MEDICARE, OTHER ==
--- NOTE | 2018-02-01 16:28 | CT ---
EXAMINATION TYPE: CT chest abdomen wo/w con DATE OF EXAM: 02/01/2018 INDICATION: RT LUNG CANCER LOWER LOBE COMPARISON: 09/27/2017 CT DLP: 702 mGycm CONTRAST: Performed with Oral Contrast and with IV Contrast, patient injected with 100 mL of Isovue 300. TECHNIQUE: Axial images at 5 mm thick sections. Reconstructed images in the coronal plane. Delayed images through the kidneys. FINDINGS: CT CHEST: Thyroid is poorly visualized. There is a 4.0 cm spiculated mass in the posterior lateral right lung. This is smaller than the 6.3 c m from 09/27/2017. There is a 0.8 cm nodule in the posterior lateral right lung base. Series 4 image 4 7. No enlarged mediastinal or hilar adenopathy is evident. Small shotty lymph nodes are present. Vascula r calcification is within the aorta. Coronary artery calcification is present. There may be some righ t hilar lymphadenopathy. This could be direct extension from the lung mass. The ascending aorta diameter at the level of the main pulmonary artery is 3.3 cm. The main pulmonary artery diameter at the bifurcation is 2.[address] ABDOMEN: Liver: There is a hypodense area within the left lobe liver measuring 1.2 cm. This is a somewhat tubu lar appearance. This may be a change from the PET/CT of 09/30/2017. Spleen: Small ill-defined hypodensities in the inferior portion of the spleen measuring approximately 0.5 cm is nonspecific. Pancreas: Somewhat atrophic Adrenal glands: The adrenal glands are normal. Gallbladder: Normal Kidneys: No masses are evident. No hydronephrosis is present. No cysts are present. Delayed images were obtained through the kidneys, which remain unremarkable. Aorta: Vascular calcification is within the aorta. Inferior vena cava: Normal. Osseous structures: No obvious lytic or sclerotic lesions. IMPRESSIONS: 1. Right lower lobe mass appears smaller than comparison. 2. There may be a new nodule inferior and lateral to the larger lung mass. 3. Direct extension or small infrahilar lymph nodes are present. 4. New hypodense area through the left lobe liver. This may be dilated duct. This is a change from 2018, additional evaluation is recommended. Consider MRI liver. Ultrasound could be performed.
== END | disposition home or self-care (01) ==
LOC: RADCTMAIN 11:34
PROVIDERS: ATTEND Radiology Radiation Oncology
DX: C34.11 Malignant neoplasm of upper lobe, right bronchus or lung (principal); K76.89 Other specified diseases of liver
CPT/HCPCS: 82565; 84520; 71270; 74170; 36415; Q9967

== ENCOUNTER → 2018-04-26 | Outpatient (CLI) | payer MEDICARE, OTHER ==
--- NOTE | 2018-04-26 13:27 | CT ---
EXAMINATION TYPE: CT chest w con DATE OF EXAM: 04/26/2018 COMPARISON: 04/13/2017 HISTORY: Right lower lobe lung. Follow-up exam. CT DLP: 282 mGycm. Automated Exposure Control for Dose Reduction was Utilized. TECHNIQUE: CT scan of the thorax is performed following with IV Contrast, patient injected with 100 mL of Isovue 300. FINDINGS: LUNGS: There is right greater than left apical pleural parenchymal scarring. There is a right lower l obe pulmonary mass measuring approximately 4.0 x 2.2 cm, similar in size to the prior of 02/01/2018. T here is new surrounding reticulation, interseptal lobular thickening, and groundglass opacities surro unding the right hilum, within the anterior right upper lobe, and throughout the lower lobe. Curvilin ear bandlike probable pleural-parenchymal scarring is again seen in the right lower lobe on image 39. New 4 mm pulmonary nodule is present within the right lower lobe with surrounding groundglass opacit y. On the coronal images the right lower lobe pulmonary mass tethers the interlobar fissure and there is adjacent pleural thickening and right lateral lung consolidation, possibly posttreatment change. No new contralateral pulmonary nodules are seen. There is background mild centrilobular emphysematous change. MEDIASTINUM: There are no greater than 1 cm hilar or mediastinal lymph nodes. 1.0 cm short axis righ t perihilar lymph node is noted on series 3 image 26. Prominent right hilar lymph nodes are also seen along the segmental pulmonary arteries such as on series 3 image 29 measuring 9 mm in short axis. No pericardial effusion is seen. OTHER: The liver displays diffuse hypoattenuation most compatible with hepatic steatosis. Few areas o f arterial enhancement that are subserosal are seen on image 64, possibly related to arterial portal shunting or focal fatty sparing. There is stable sclerosis of the posterior origin of rib 9 seen on axial images 37 and 38 and coronal image 64 in comparison to exam of 2018. This is nonspecific. Mild multilevel degenerative changes of the spine are noted. IMPRESSION: 1. Similar size of the primary right lower lobe pulmonary mass in comparison to the exam of 04/13/2017 with new surrounding multifocal groundglass opacities within the right lung that may be on the basis of posttreatment/post radiation change. Correlate with treatment regimen. 2. New right lower lobe subcentimeter pulmonary nodules suspicious for ipsilateral metastasis. No con tralateral pulmonary metastasis or new adenopathy in the mediastinum is seen. Prominent mediastinal l ymph nodes remain. No supraclavicular suspicious lymph nodes. No new pleural effusion. 3. Stable sclerosis of the posterior margin of rib 9 on the left is nonspecific. Nuclear medicine bon e scan could assess for suspicious uptake of metastatic disease although this finding is unchanged fr om the prior of 2018.
== END | disposition home or self-care (01) ==
LOC: RADCTMAIN 11:23
PROVIDERS: ATTEND Internal Medicine Hematology & Oncology
DX: C34.31 Malignant neoplasm of lower lobe, right bronchus or lung (principal); M89.9 Disorder of bone, unspecified
CPT/HCPCS: 82565; 84520; 71260; 36415; Q9967

== ENCOUNTER → 2018-07-16 | Outpatient (CLI) | payer MEDICARE, OTHER ==
--- NOTE | 2018-07-16 10:33 | XR ---
EXAMINATION TYPE: XR chest 2V DATE OF EXAM: 07/16/2018 COMPARISON: Chest CT April 26, 2018. Chest x-ray April 09, 2018. HISTORY: History of lung cancer with cough. TECHNIQUE: Frontal and lateral views of the chest are obtained. FINDINGS: There is persistent right hilar opacity consistent with scarring and residual neoplasm. Th ere is increasing right basilar opacity favoring worsening scarring and/or atelectasis. No new medias tinal shift is seen. Left lung appears clear. The cardiac silhouette size is stable and within tomeka l limits. The osseous structures are intact. IMPRESSION: Persistent right hilar scarring and neoplasm with worsening right basilar scarring and/o r atelectasis. Areas of new underlying acute infiltrate difficult to entirely exclude.
== END | disposition home or self-care (01) ==
LOC: RADXRMAIN 10:07
PROVIDERS: ATTEND Internal Medicine
DX: D49.1 Neoplasm of unspecified behavior of respiratory system (principal); J98.4 Other disorders of lung
CPT/HCPCS: 71046

== ENCOUNTER → 2018-09-27 | Outpatient (CLI) | payer MEDICARE, OTHER ==
--- NOTE | 2018-09-27 11:41 | CT ---
EXAMINATION TYPE: CT chest w con DATE OF EXAM: 09/27/2018 COMPARISON: 04/26/2018 and 02/01/2018 HISTORY: 77-year-old female Lung cancer recheck TECHNIQUE: Contiguous axial scanning of the chest after the administration of 100 mL of Isovue 300. Coronal/sagittal reconstructions performed. CT DLP: 103.6mGycm. Automatic exposure control utilized for a dose reduction. FINDINGS: Mild pectus excavatum deformity. Heart normal size without pericardial effusion. Coronary vessel calc ifications are demonstrated. Aorta normal caliber with conventional arch vessel branching anatomy and mild atherosclerotic arch ca lcifications. No thoracic lymphadenopathy seen. Moderate circumference wall thickening mid thoracic esophagus. There is new consolidation in the central right peribronchial vascular region. Possible enlarging nodularity right hilum measuring 1.9 cm versus 1.3 cm, previously, axial image 28. The patient's left lower lobe mass has increased in size now measuring 7.1 x 4.0 cm versus 4.0 x 3.7 cm on 04/26/2018. Right greater than left biapical pleural-parenchymal scarring. Mild scattered emphysematous change. N o new pulmonary nodule or mass is seen. Mildly prominent left periaortic lymph nodes in the upper abdomen measuring up to 7 mm remain unchang ed. Bones: No osseous destructive process seen. There is superior endplate deformity of T6 which was not present on 04/26/2018 no significant paravertebral soft tissue swelling or retropulsion into the spina l canal. IMPRESSION: 1. New extensive right perihilar consolidation possibly progressive posttreatment change or radiation pneumonitis. Correlate with patient's symptoms. 2. Enlarging right lower lobe mass currently measuring 7.1 x 4.0 cm versus 4.0 x 3.7 cm, previously. Local disease progression not excluded. 3. Nodularity at the right hilum measures 1.9 cm versus 1.3 cm, previously and could represent a reac tive lymph node. Additional site of local progression again difficult to exclude and follow-up is rec ommended. 4. Moderate circumferential wall thickening mid thoracic esophagus likely posttreatment change.
== END | disposition home or self-care (01) ==
LOC: RADCTMAIN 09:48
PROVIDERS: ATTEND Internal Medicine Hematology & Oncology
DX: C34.31 Malignant neoplasm of lower lobe, right bronchus or lung (principal); R91.8 Other nonspecific abnormal finding of lung field; K22.8 Other specified diseases of esophagus
CPT/HCPCS: 82565; 84520; 71260; 36415; Q9967

== ENCOUNTER → 2018-10-06 | Outpatient (CLI) | payer MEDICARE, OTHER ==
--- NOTE | 2018-10-08 12:26 | PE ---
EXAMINATION TYPE: PET CT fusion skull to thigh DATE OF EXAM: 10/06/2018 COMPARISON: CT chest 09/27/2018 Prior PET/CT: 09/30/2017 HISTORY: Pulmonary mass TECHNIQUE: Following the intravenous administration of 11.803 mCi of F-18 FDG, whole body images are performed from the skull base to the midthigh. Images are reviewed on the computer in the coronal, axial, and sagittal planes. Reconstructed rotating images are created on independent workstation and reviewed on the computer. A localization and attenuation correction CT is performed in conjunction with the PET scan. DLP: 169.22 mGycm SCAN: Subsequent Blood glucose: 83 mg/dL Average Mediastinum SUV: 1.26 Average Liver SUV: 1.82 FINDINGS: NECK: No suspicious uptake THORAX: There is a large mass in the posterior right upper lung with intense peripheral uptake measur ing 4.98, diminished from 10.4 SUV. Additional uptake is in the right suprahilar region with an SUV v alue of 2.95, diminished from 7.96. Previous smaller circumscribed intensities within the right perih ilar region are no longer visible. ABDOMEN: No abnormal uptake PELVIS: No abnormal uptake OSSEOUS STRUCTURES: No abnormal uptake LOCALIZATION CT: Degenerative changes and scoliosis are through the lumbar spine. The ascending thora cic aorta at the level the main pulmonary artery is 3.3 cm patent main pulmonary artery the bifurcati on is 2.4 cm. Large consolidation is at the prior mass. Size appears increased although SUV intensity is diminished. Note is made of coronary artery calcification. Small right pleural effusion is presen t. COMPARISON: Improving SUV values through previous right lower lobe lung cancer. Hilar involvement taylor ears diminished. No suspicious radiotracer is within the right breast corresponding to density within the right breast on CT exam 09/27/2018. Consider correlation with mammography. Most recent mammograph y at this location is dated 12/14/2016. IMPRESSION: 1. Improving superior segment right lower lobe mass uptake. 2. The consolidation surrounding the previous mass may be greater than prior. 3. Consider mammography. Most recent comparison available at this location is dated 2016.
== END | disposition home or self-care (01) ==
LOC: RADPETMAIN 07:27
PROVIDERS: ATTEND Internal Medicine Hematology & Oncology
DX: R91.8 Other nonspecific abnormal finding of lung field (principal); C34.31 Malignant neoplasm of lower lobe, right bronchus or lung
CPT/HCPCS: 78815; A9552

== ENCOUNTER → 2018-11-16 | Outpatient (CLI) | payer MEDICARE, OTHER ==
[2018-11-16 14:23] LABS: Basophils % (A) 0 %; Eosinophils # (A) 0.1 k/uL (0-0.7); Eosinophils % (A) 1 %; HGB 13.3 gm/dL (11.4-16.0); Lymphocytes # (A) 0.9 k/uL (1.0-4.8); Lymphocytes % (A) 11 %; MCH 29.8 pg (25.0-35.0); MCHC 31.8 g/dL (31.0-37.0); MCV 93.8 fL (80.0-100.0); Mean Platelet Volume 6.8; Monocytes # (A) 0.8 k/uL (0-1.0); Monocytes % (A) 9 %; Neutrophils # (A) 6.8 k/uL (1.3-7.7); Neutrophils % (A) 77 %; Platelet Count 307 k/uL (150-450); RBC 4.48 m/uL (3.80-5.40); RDW 14.6 % (11.5-15.5); WBC 8.9 k/uL (3.8-10.6)
[2018-11-16 16:31] LABS: Erythrocyte Sedimentation Rate 76 mm/hr (0-20)
[2018-11-16 18:59] LABS: African American GFR (CKD) 81.3 (60.0-200.0); C Reactive Protein 6.5 mg/dL (0.0-0.8)
== END | disposition home or self-care (01) ==
LOC: LABWHC1 14:12
PROVIDERS: ATTEND Internal Medicine Rheumatology
DX: M06.9 Rheumatoid arthritis, unspecified (principal)
CPT/HCPCS: 36415; 82565; 84450; 84460; 85025; 85652; 86140

== ENCOUNTER → 2019-02-06 | Outpatient (CLI) | payer MEDICARE, OTHER | END | disposition home or self-care (01) | LOC: LABWHC1 11:28 | PROVIDERS: ATTEND Nurse Practitioner Adult Health | DX: E03.9 Hypothyroidism, unspecified (principal) | CPT/HCPCS: 36415; 84443 ==

== ENCOUNTER → 2019-02-15 | Outpatient (CLI) | payer MEDICARE, OTHER ==
[2019-02-15 15:14] LABS: Basophils % (A) 0 %; Eosinophils # (A) 0.1 k/uL (0-0.7); Eosinophils % (A) 1 %; HCT 42.3 % (34.0-46.0); HGB 14.1 gm/dL (11.4-16.0); Lymphocytes # (A) 0.9 k/uL (1.0-4.8); Lymphocytes % (A) 10 %; MCH 29.9 pg (25.0-35.0); MCHC 33.3 g/dL (31.0-37.0); MCV 89.6 fL (80.0-100.0); Mean Platelet Volume 5.9; Monocytes # (A) 0.4 k/uL (0-1.0); Monocytes % (A) 5 %; Neutrophils # (A) 6.9 k/uL (1.3-7.7); Neutrophils % (A) 82 %; Platelet Count 251 k/uL (150-450); RBC 4.72 m/uL (3.80-5.40); RDW 14.7 % (11.5-15.5); WBC 8.4 k/uL (3.8-10.6)
[2019-02-15 16:06] LABS: Erythrocyte Sedimentation Rate 36 mm/hr (0-20)
[2019-02-15 18:30] LABS: African American GFR (CKD) 70.5 (60.0-200.0); C Reactive Protein 2.4 mg/dL (0.0-0.8)
== END ==
LOC: LABWHC1 14:49
PROVIDERS: ATTEND Internal Medicine Rheumatology
DX: M06.9 Rheumatoid arthritis, unspecified (principal)
CPT/HCPCS: 36415; 82565; 84450; 84460; 85025; 85652; 86140

== ENCOUNTER → 2019-03-09 | Outpatient (CLI) | payer MEDICARE, OTHER ==
--- NOTE | 2019-03-19 11:10 | PE ---
Nuclear medicine PET/CT HISTORY: Lung carcinoma, subsequent Patient received 11.9 mCi F-18 FDG intravenously in delayed scanning was performed from the skull bas e to the mid thighs. Localization and attenuation correction CT scan was performed. Correlation to prior nuclear medicine PET/CT 10/06/2018 Neck and chest: The confluent density in the right lower lobe with some associated air bronchograms s hadowing associated hypermetabolic uptake on previous exam is again noted and shows a decrease in ass ociated hypermetabolic uptake SUV is 8.8 as compared to 9.8 on prior, the uptake is less confluent an d more peripheral in distribution. There is a right pleural effusion which may be increased slightly in the interval. Coronary artery calcifications are present. No pericardial effusion. ABDOMEN: No evident retroperitoneal adenopathy. No adrenal mass or suspicious hypermetabolic uptake. Liver shows no mass, spleen is not enlarged. Atherosclerotic calcification present within the aorta. No pelvic adenopathy or free fluid. Extensive diverticular change noted within the sigmoid colon. Osseous structures show no destructive lesion. Degenerative disc changes are present in the spine. Co mpression fracture present in the midthoracic vertebral body approximately T6 is similar to prior exa m, no evident retropulsion. IMPRESSION: There is some decreased hypermetabolic uptake as compared to prior exam
== END | disposition home or self-care (01) ==
LOC: RADPETMAIN 10:20
PROVIDERS: ATTEND Internal Medicine Hematology & Oncology
DX: C34.31 Malignant neoplasm of lower lobe, right bronchus or lung (principal); Z92.21 Personal history of antineoplastic chemotherapy
CPT/HCPCS: 78815; A9552

== ENCOUNTER → 2019-08-09 | Outpatient (CLI) | payer MEDICARE, OTHER ==
--- NOTE | 2019-08-11 16:28 | PE ---
Nuclear medicine PET/CT HISTORY: Lung carcinoma, subsequent Patient received 13.6 mCi F-18 FDG intravenously in delayed scanning was performed from the skull bas e to the mid thighs. Localization and attenuation correction CT scan was performed. Correlation to prior nuclear medicine PET/CT 03/09/2019 Neck and chest: There is no cervical or supraclavicular adenopathy present. No axillary adenopathy. T he abnormal soft tissue at the right lower hemithorax posteriorly extending from the hilum inferiorly with associated air bronchograms and mixed density is again seen and there is associated hypermetabo lic uptake, SUV 8. The distribution of the hypermetabolic uptake has progressed somewhat in the inter beverly and is somewhat more confluent. The abnormal soft tissue is also increased in size slightly in th e interval. Some mild uptake seen in the region of the right atrium has improved somewhat in the inte rval. There is a persistent small right pleural effusion inferiorly. Abdomen shows a stable appearance. No suspicious uptake. No evident adrenal mass, liver mass or retro peritoneal adenopathy. Aorta shows dense calcifications. No evident ascites. Diverticular changes ass ociated with the sigmoid colon. No pelvic adenopathy. Osseous structures are stable. IMPRESSION: Some progression in the abnormal soft tissue in the right lung, hypermetabolic uptake as described. Additional findings above.
== END | disposition home or self-care (01) ==
LOC: RADPETMAIN 11:00
PROVIDERS: ATTEND Internal Medicine Hematology & Oncology
DX: C34.31 Malignant neoplasm of lower lobe, right bronchus or lung (principal); J90 Pleural effusion, not elsewhere classified
CPT/HCPCS: 78815; A9552

== ENCOUNTER → 2019-08-28 | Outpatient (CLI) | payer MEDICARE, OTHER ==
[2019-08-28 10:46] LABS: Basophils % (A) 0 %; Eosinophils # (A) 0.2 k/uL (0-0.7); Eosinophils % (A) 3 %; HCT 46.2 % (34.0-46.0); Hypochromasia Slight; Lymphocytes # (A) 0.9 k/uL (1.0-4.8); Lymphocytes % (A) 13 %; MCH 31.3 pg (25.0-35.0); MCHC 32.4 g/dL (31.0-37.0); MCV 96.7 fL (80.0-100.0); Mean Platelet Volume 7.5; Monocytes # (A) 0.6 k/uL (0-1.0); Monocytes % (A) 9 %; Neutrophils # (A) 5.2 k/uL (1.3-7.7); Neutrophils % (A) 73 %; Platelet Count 233 k/uL (150-450); RBC 4.78 m/uL (3.80-5.40); RDW 14.1 % (11.5-15.5); WBC 7.2 k/uL (3.8-10.6)
[2019-08-28 13:48] LABS: Erythrocyte Sedimentation Rate 28 mm/hr (0-20)
[2019-08-28 16:09] LABS: T4, Free (Free Thyroxine) 1.2 ng/dL (0.80-1.80)
[2019-08-28 16:28] LABS: African American GFR (CKD) 81.3 (60.0-200.0); Albumin 4.1 g/dL (3.80-4.90); Albumin/Globulin Ratio 1.71 (1.60-3.17); Anion Gap 7.7 mmol/L (4.00-12.00); BUN/Creat Ratio 18.75 Ratio (12.00-20.00); C Reactive Protein 5.4 mg/dL (0.0-0.8); Calcium 9.7 mg/dL (8.7-10.3); Carbon Dioxide 31.3 mmol/L (21.6-31.8); Globulin 2.4 g/dL (1.6-3.3); Non-African American GFR(CKD) 70.1 (60.0-200.0); Potassium 4.6 mmol/L (3.5-5.5); Total Bilirubin 0.6 mg/dL (0.3-1.2); Total Protein 6.5 g/dL (6.2-8.2)
== END | disposition home or self-care (01) ==
LOC: LABWHC1 09:41
PROVIDERS: ATTEND Internal Medicine Rheumatology
DX: M06.9 Rheumatoid arthritis, unspecified (principal); E55.9 Vitamin D deficiency, unspecified; E03.9 Hypothyroidism, unspecified; R53.83 Other fatigue
CPT/HCPCS: 36415; 80053; 82306; 84439; 84443; 84481; 85025; 85652; 86140

== ENCOUNTER → 2019-09-19 | Outpatient (CLI) | payer MEDICARE, OTHER ==
--- NOTE | 2019-09-19 16:59 | CT ---
EXAMINATION TYPE: CT angio chest DATE OF EXAM: 09/19/2019 COMPARISON: 09/27/2018 HISTORY: Shortness of breath with cough. Recently started new treatment. CT DLP: 156 mGycm Automated exposure control for dose reduction was used. CONTRAST: Performed with IV Contrast, patient injected with 80 mL of Isovue 370. There are 3-D post processed images. There is right pleural effusion and masslike consolidation in th e right lower lobe predominantly in the superior segment.. This extends to the right pulmonary hilum. There is no sign of mediastinal adenopathy. Thoracic aorta is atheromatous. There is no aneurysm or dissection. Heart size is normal. There is no pericardial effusion. The left lung is clear of infiltr ate. There is minimal pleural thickening at the left lung apex. There is normal contrast opacification of the left pulmonary artery. There is narrowing of the lumen of the right lower lobe pulmonary artery probably due to extrinsic compression. I see no intraluminal filling defect in the pulmonary arteries. There is 25% compression fracture of T6 vertebra increased slightly compared to 09/27/2018. There is a new compression of T8 vertebra 25% compared to old exam. IMPRESSION: No evidence of pulmonary embolism. Consolidation in the right lower lobe with pleural effusion slightly increased compared to 08/09/2019 a nd consistent with progression of tumor.
== END | disposition home or self-care (01) ==
LOC: RADCTMAIN 15:27
PROVIDERS: ATTEND Internal Medicine Hematology & Oncology
DX: J18.1 Lobar pneumonia, unspecified organism (principal); J90 Pleural effusion, not elsewhere classified; C34.31 Malignant neoplasm of lower lobe, right bronchus or lung
CPT/HCPCS: 82565; 84520; 71275; 36415; Q9967

== ENCOUNTER 2019-10-12 11:43 | Observation (INO) | payer MEDICARE, OTHER ==
[2019-10-12 12:37] LABS: Basophils % (A) 1 %; Eosinophils # (A) 0.2 k/uL (0-0.7); Eosinophils % (A) 3 %; HCT 43.8 % (34.0-46.0); HGB 13.9 gm/dL (11.4-16.0); Lymphocytes # (A) 0.7 k/uL (1.0-4.8); Lymphocytes % (A) 10 %; MCH 29.2 pg (25.0-35.0); MCHC 31.8 g/dL (31.0-37.0); Mean Platelet Volume 7.8; Monocytes # (A) 0.4 k/uL (0-1.0); Monocytes % (A) 6 %; Neutrophils # (A) 5.5 k/uL (1.3-7.7); Neutrophils % (A) 78 %; Platelet Count 286 k/uL (150-450); RBC 4.77 m/uL (3.80-5.40); RDW 14.6 % (11.5-15.5)
--- NOTE | 2019-10-12 12:38 | ED ---
SOB HPI - General Chief Complaint: Shortness of Breath Stated Complaint: SOB, lung cancer Time Seen by Provider: 10/12/19 12:02 Source: patient Mode of arrival: wheelchair Limitations: physical limitation - History of Present Illness Initial Comments: 78-year-old female presenting today for chief complaint of shortness of breath right rib pain patient states she is a right-sided lung mass and it has been hurting since August. Patient states she has been evaluated and had a chest CT last month for this complaint. Patient states she feels that the shortness of breath is increasing. She denies hemoptysis upper or lower extremity swelling. She denies having a history of DVT or pulmonary embolism is currently undergoing chemotherapy for treatment of her lung cancer. Patient denies substernal or left sided chest pressure. Denies jaw or arm pain. Patient denies diaphoresis or presyncope. Patient denies vomiting, diarrhea, rectal bleeding. patient has no additional complaints. Upon arrival patient oxygenating well on RA, however HR elevated. BP within acceptable limits. - Related Data Home Medications Medication Instructions Recorded Confirmed Aspirin [Children's Aspirin] 81 mg PO DAILY 09/19/17 10/12/19 Celecoxib [CeleBREX] 200 mg PO BID 09/19/17 10/12/19 Cholecalciferol (Vitamin D3) 2,000 unit PO DAILY 09/19/17 10/12/19 [Vitamin D3] Folic Acid 1 mg PO DAILY 09/19/17 10/12/19 Methotrexate Sodium [Methotrexate] 15 mg PO TH 09/19/17 10/12/19 Simvastatin [Zocor] 10 mg PO DAILY 09/19/17 10/12/19 amLODIPine [Norvasc] 5 mg PO DAILY 09/19/17 10/12/19 Albuterol Inhaler [Ventolin Hfa 1 puff INHALATION RT-QID PRN 10/12/19 10/12/19 Inhaler] Cetirizine HCl 10 mg PO DAILY 10/12/19 10/12/19 Codeine Phosphate/Guaifenesin 10 ml PO Q4H PRN 10/12/19 10/12/19 [Guaifen-Codeine 100-10 mg/5 ml] Cyanocobalamin (Vitamin B-12) 1,000 mcg PO DAILY 10/12/19 10/12/19 [Vitamin B-12] Levothyroxine Sodium 100 mcg PO DAILY 10/12/19 10/12/19 predniSONE 5 mg PO DAILY 10/12/19 10/12/19 Allergies Allergy/AdvReac Type Severity Reaction Status Date / Time No Known Allergies Allergy Verified 10/12/19 14:05 Review of Systems ROS Statement: Those systems with pertinent positive or pertinent negative responses have been documented in the HPI. ROS Other: All systems not noted in ROS Statement are negative. Past Medical History Past Medical History: Cancer, Hyperlipidemia, Hypertension, Rheumatoid Arthritis (RA), Skin Disorder, Thyroid Disorder Additional Past Medical History / Comment(s): melanoma - skin lesion on rt cheek ,lung mass History of Any Multi-Drug Resistant Organisms: None Reported Past Surgical History: Back Surgery, Orthopedic Surgery Additional Past Surgical History / Comment(s): skin lesion removed, lt knee replacement Past Anesthesia/Blood Transfusion Reactions: No Reported Reaction Additional Past Anesthesia/Blood Transfusion Reaction / Comment(s): no bld transfusion Past Psychological History: No Psychological Hx Reported Smoking Status: Former smoker Past Alcohol Use History: None Reported Past Drug Use History: None Reported - Past Family History Son(s) Family Medical History: Cancer Additional Family Medical History / Comment(s): leukemia Daughter(s) Family Medical History: Cancer Additional Family Medical History / Comment(s): breast Mother Family Medical History: Cancer Additional Family Medical History / Comment(s): lymphoma General Exam - General Exam Comments Initial Comments: General: The patient is awake and alert, in no distress Eye: +3 mm pupils are equal, round and reactive to light, extra-ocular movements are intact. No nystagmus. There is normal conjunctiva bilaterally. No signs of icterus. Ears, nose, mouth and throat: There are moist mucous membranes and no oral lesions. Neck: The neck is supple, there is no tenderness or JVD. Cardiovascular: There is a increased rate and regular rhythm. No murmur, rub or gallop is appreciated. Respiratory: Coarse lung sound and fine crackles through mid right lung broderick, respirations are non-labored. No wheezes, stridor. Gastrointestinal: Soft, non-distended, non-tender abdomen without masses or organomegaly noted. There is no rebound or guarding present. Musculoskeletal: Normal ROM, no tenderness. Strength 5/5. Sensation intact. Radial pulses equal bilaterally 2+. Neurological: A&O x 3. CN II-XII intact grossly, There are no obvious motor or sensory deficits. Coordination appears grossly intact. Speech is normal. Skin: Skin is warm and dry and no rashes or lesions are noted. Psychiatric: Cooperative, appropriate mood & affect, normal judgment. Limitations: physical limitation Course Vital Signs 10/12/19 10/12/19 10/12/19 11:48 13:00 13:56 Temperature 98.1 F Pulse Rate 109 H 97 102 H Pulse Rate [ Pulse Oximetery ] Respiratory 20 22 20 Rate Blood Pressure 118/74 104/72 121/76 Blood Pressure [Left Arm] O2 Sat by Pulse 97 98 97 Oximetry 10/12/19 10/12/19 14:45 14:51 Temperature 97.6 F 98.1 F Pulse Rate 101 H Pulse Rate [ 108 H Pulse Oximetery ] Respiratory 12 18 Rate Blood Pressure 112/67 Blood Pressure 156/87 [Left Arm] O2 Sat by Pulse 92 L 98 Oximetry Medical Decision Making - Medical Decision Making Afebrile, nontoxic appearing. CXR reveals mass, effusion. Patietn CTA no PE, mass with post obstructive PNA. Patient has no leukocytosis. Patient will be treated with cefepime and vancomycin admitted to the hospital for monitoring, IV abx, fluids and further evaluation. Patient is agreeable to admission and care plan as is attending Dr. Sahni who spoke with accepting admitting provide for sound physicians covering for patients PCP/ - Lab Data Result diagrams: 10/12/19 12:20 10/12/19 12:20 Lab Results 10/12/19 10/12/19 10/12/19 Range/Units 12:20 12:20 12:20 WBC 7.0 (3.8-10.6) k/uL RBC 4.77 (3.80-5.40) m/uL Hgb 13.9 (11.4-16.0) gm/dL Hct 43.8 (34.0-46.0) % MCV 91.7 D (80.0-100.0) fL MCH 29.2 (25.0-35.0) pg MCHC 31.8 (31.0-37.0) g/dL RDW 14.6 (11.5-15.5) % Plt Count 286 (150-450) k/uL Neutrophils % 78 % Lymphocytes % 10 % Monocytes % 6 % Eosinophils % 3 % Basophils % 1 % Neutrophils # 5.5 (1.3-7.7) k/uL Lymphocytes # 0.7 L (1.0-4.8) k/uL Monocytes # 0.4 (0-1.0) k/uL Eosinophils # 0.2 (0-0.7) k/uL Basophils # 0.0 (0-0.2) k/uL PT 10.5 (9.0-12.0) sec INR 1.0 (<1.2) APTT 28.4 (22.0-30.0) sec D-Dimer 3.30 H (<0.60) mg/L FEU Sodium 133 L (137-145) mmol/L Potassium 4.3 (3.5-5.1) mmol/L Chloride 101 (98-107) mmol/L Carbon Dioxide 24 (22-30) mmol/L Anion Gap 8 mmol/L BUN 15 (7-17) mg/dL Creatinine 0.67 (0.52-1.04) mg/dL Est GFR (CKD-EPI)AfAm >90 (>60 ml/min/1.73 sqM) Est GFR (CKD-EPI)NonAf 84 (>60 ml/min/1.73 sqM) Glucose 96 (74-99) mg/dL Plasma Lactic Acid Gustavo (0.7-2.0) mmol/L Calcium 9.6 (8.4-10.2) mg/dL Total Bilirubin 0.9 (0.2-1.3) mg/dL AST 33 (14-36) U/L ALT 17 (4-34) U/L Alkaline Phosphatase 151 H (38-126) U/L Troponin I (0.000-0.034) ng/mL NT-Pro-B Natriuret Pep pg/mL Total Protein 6.3 (6.3-8.2) g/dL Albumin 3.6 (3.5-5.0) g/dL 10/12/19 10/12/19 10/12/19 Range/Units 12:20 12:20 12:20 WBC (3.8-10.6) k/uL RBC (3.80-5.40) m/uL Hgb (11.4-16.0) gm/dL Hct (34.0-46.0) % MCV (80.0-100.0) fL MCH (25.0-35.0) pg MCHC (31.0-37.0) g/dL RDW (11.5-15.5) % Plt Count (150-450) k/uL Neutrophils % % Lymphocytes % % Monocytes % % Eosinophils % % Basophils % % Neutrophils # (1.3-7.7) k/uL Lymphocytes # (1.0-4.8) k/uL Monocytes # (0-1.0) k/uL Eosinophils # (0-0.7) k/uL Basophils # (0-0.2) k/uL PT (9.0-12.0) sec INR (<1.2) APTT (22.0-30.0) sec D-Dimer (<0.60) mg/L FEU Sodium (137-145) mmol/L Potassium (3.5-5.1) mmol/L Chloride (98-107) mmol/L Carbon Dioxide (22-30) mmol/L Anion Gap mmol/L BUN (7-17) mg/dL Creatinine (0.52-1.04) mg/dL Est GFR (CKD-EPI)AfAm (>60 ml/min/1.73 sqM) Est GFR (CKD-EPI)NonAf (>60 ml/min/1.73 sqM) Glucose (74-99) mg/dL Plasma Lactic Acid Gustavo 1.1 (0.7-2.0) mmol/L Calcium (8.4-10.2) mg/dL Total Bilirubin (0.2-1.3) mg/dL AST (14-36) U/L ALT (4-34) U/L Alkaline Phosphatase (38-126) U/L Troponin I <0.012 (0.000-0.034) ng/mL NT-Pro-B Natriuret Pep 620 pg/mL Total Protein (6.3-8.2) g/dL Albumin (3.5-5.0) g/dL Disposition Clinical Impression: Postobstructive pneumonia, Hx of cancer of lung, Dyspnea, Tachycardia, Pleural effusion, right, Lung mass Disposition: ADMITTED IP TO THIS [facility] Condition: Stable Is patient prescribed a controlled substance at d/c from ED?: No Time of Disposition: 14:25 Decision to Admit Reason: Admit from EC Decision Date: 10/12/19 Decision Time: 14:25
[2019-10-12 12:40] LABS: MCV 91.7 fL (80.0-100.0)
[2019-10-12 12:47] LABS: ALT 17 U/L (4-34); AST 33 U/L (14-36); African American GFR (CKD) >90 (>60 ml/min/1.73 sqM); Albumin 3.6 g/dL (3.5-5.0); Alkaline Phosphatase 151 U/L (38-126); Anion Gap 8 mmol/L; Blood Urea Nitrogen 15 mg/dL (7-17); Calcium 9.6 mg/dL (8.4-10.2); Carbon Dioxide 24 mmol/L (22-30); Chloride 101 mmol/L (98-107); Glucose 96 mg/dL (74-99); Non-African American GFR(CKD) 84 (>60 ml/min/1.73 sqM); Potassium 4.3 mmol/L (3.5-5.1); Sodium 133 mmol/L (137-145); Total Bilirubin 0.9 mg/dL (0.2-1.3); Total Protein 6.3 g/dL (6.3-8.2)
[2019-10-12 12:53] LABS: Partial Thromboplastin Time 28.4 sec (22.0-30.0); Prothrombin Time 10.5 sec (9.0-12.0)
[2019-10-12 13:02] LABS: D-Dimer 3.3 mg/L FEU (<0.60)
--- NOTE | 2019-10-12 13:21 | XR ---
EXAMINATION TYPE: XR chest 2V DATE OF EXAM: 10/12/2019 COMPARISON: 07/16/2018 HISTORY: Shortness of breath TECHNIQUE: Frontal and lateral views of the chest are obtained. FINDINGS: Scattered senescent parenchymal changes noted. Hyperinflation compatible with COPD. Perihilar masslike density persists. Right-sided volume loss with right effusion and underlying atele ctasis and/or infiltrate. Heart size is stable. Mediastinal structures are stable and grossly unremarkable. No evidence for hilar prominence. Degenerative changes dorsal spine. IMPRESSION: 1. Perihilar masslike density persists. Right-sided volume loss with right effusion and underlying at electasis and/or infiltrate.
--- NOTE | 2019-10-12 13:46 | CT ---
EXAMINATION TYPE: CT chest angio for PE DATE OF EXAM: 10/12/2019 COMPARISON: 09/19/2019 HISTORY: Elevated d dimer, SOB, known lung CA CT DLP: 213.2 mGycm CONTRAST: CT chest with contrast and 3D reconstruction with MIP imaging is performed with IV Contrast, patient injected with 66 mL of Isovue 370. Contrast-enhanced CT of the chest was performed through the course of the pulmonary arteries with joceline g and mediastinal window settings submitted. 3D reconstruction with MIP imaging was also performed. PULMONARY ARTERIES: The pulmonary arteries and their major tributaries are patent. I do not see maurice dence for sizable filling defect to suggest pulmonary embolic process. LUNGS: Right hilar mass like area measuring 5 cm with postobstructive pneumonia and volume loss. Mode rate to large pleural effusion right lung. Findings are compatible with underlying neoplasm. MEDIASTINUM: Thoracic aorta is of normal caliber,however, evaluation is limited given timing of the contrast bolus. If there is concern for thoracic aortic pathology consider MUNIR. Correlate clinicall y . The heart is not enlarged. No evidence for mediastinal mass. Stable mediastinal adenopathy. UPPER ABDOMEN: No significant abnormality is seen. Vague lucent lesions of the thoracic spine may re flect metastatic disease. IMPRESSION: 1. No evidence for Pulmonary embolism at this time. 2. Right hilar mass with postobstructive pneumonia and atelectasis. Moderate to large right-sided ple ural effusion.
[2019-10-12] MEDS ORDERED: CEFEPIME 1 GM in SODIUM CHLORIDE 0.9% 50 ML IVPB STA (14:13)
[2019-10-12] MEDS ORDERED: VANCOMYCIN IV PER PHARMACY 1 EACH MISC MISCELLANE PRN (14:14)
[2019-10-12] MEDS ORDERED: SODIUM CHLORIDE 0.9% 1,000 ML IV ONE (14:15)
[2019-10-12] MEDS ORDERED: NALOXONE 0.4 MG/ML 1 ML VIAL IV PRN (14:23)
[2019-10-12] MEDS ORDERED: CEFEPIME 2 GM in SODIUM CHLORIDE 0.9% 100 ML IVPB STA (14:23)
[2019-10-12] MEDS: SODIUM CHLORIDE 0.9% 1,000 ML IV SCH ×2 (14:28→22:53)
[2019-10-12] MEDS: VANCOMYCIN 1,000 MG in SODIUM CHLORIDE 0.9% 250 ML IVPB ONE ×2 (14:37→15:23)
[2019-10-12] MEDS ORDERED: traMADol 50 MG TAB PO PRN (15:40)
[2019-10-12] MEDS ORDERED: ACETAMINOPHEN TAB 325 MG TAB PO PRN (15:40)
[2019-10-12] MEDS ORDERED: MORPHINE SULFATE 4 MG/ML SYRINGE IV PRN (17:17)
[2019-10-12] MEDS ORDERED: ONDANSETRON 4 MG/2 ML VIAL IVP PRN (17:17)
[2019-10-12] MEDS ORDERED: ALBUTEROL NEBULIZED 2.5 MG/3 ML INHALATION PRN (17:23)
--- NOTE | 2019-10-12 17:40 | P.HPIM ---
History of Present Illness H&P Date: 10/12/19 Chief Complaint: rib pain Patient is a 78-year-old female with stage III squamous cell carcinoma of the lung currently on Opdivo therapy with Dr. Solo, hypertension, and hyp othyroidism who presented with rib pain. In the emergency department she underwent an extensive evaluation. She was slightly tachycardic on arrival. Her laboratory analysis showed sodium of 133 and an elevated d-dimer. She underwent a CTA of the chest which did not demonstrate any evidence of pulmonary emboli confirmed her known right sided lung cancer with atelectasis and moderate to large pleural effusion. Initially they were concerned for possible postobstructive pneumonia and she was given a dose of cefepime. Arrangements were made for admissions. Patient seen and examined at bedside with her present. She states that she has been having right rib pain for quite some time. Her shortness of breath has been slowly getting worse. She's been feeling very tired and sleeping a lot. She was diagnosed with squamous cell carcinoma of the lung in 2017. She had been treatment. For 7 months. Repeat PET/CT done in August demonstrated increased uptake in the right lung. She was started on Opdivo and with her first dose on September 09 and her second dose which was half strength on October 11. No fevers + SOB, worse with exertion + fatigued and worn out, sleeping often - decreased appetite with change in taste rare cough with clear phlegm Pain right side of lung and back, no help with tylenol, hurts with movement of arms over the top of head. no nuasea or vomiting + Constipation Dr. Diaz Band Saw Operator Dr. Solo Oncologist and she also follow with Sadaf Yost NP Review of Systems Pertinent positives and negatives as discussed in HPI, a complete review of systems was performed and all other systems are negative. Past Medical History Past Medical History: Cancer, Hyperlipidemia, Hypertension, Rheumatoid Arthritis (RA), Skin Disorder, Thyroid Disorder Additional Past Medical History / Comment(s): melanoma - skin lesion on rt cheek, Stage III lung cancer Squamous Cell, osteoprosis History of Any Multi-Drug Resistant Organisms: None Reported Past Surgical History: Back Surgery, Orthopedic Surgery Additional Past Surgical History / Comment(s): skin lesion removed, lt knee replacement, Bronch with biopsy, b/l knee arthroscopy, b/l cataract, right shoulder surgery for rotator cuff repair, bakers cyst rihgt knee Past Anesthesia/Blood Transfusion Reactions: No Reported Reaction Additional Past Anesthesia/Blood Transfusion Reaction / Comment(s): no bld transfusion Past Psychological History: No Psychological Hx Reported Smoking Status: Former smoker Past Alcohol Use History: None Reported Past Drug Use History: None Reported Additional Drug Use History / Comment(s): No cane or walker. No oxygen. Lives with - Past Family History Son(s) Family Medical History: Cancer Additional Family Medical History / Comment(s): leukemia Daughter(s) Family Medical History: Cancer Additional Family Medical History / Comment(s): breast Mother Family Medical History: Cancer Additional Family Medical History / Comment(s): lymphoma Medications and Allergies Home Medications Medication Instructions Recorded Confirmed Type Aspirin [Children's Aspirin] 81 mg PO DAILY 09/19/17 10/12/19 History Celecoxib [CeleBREX] 200 mg PO BID 09/19/17 10/12/19 History Cholecalciferol (Vitamin D3) 2,000 unit PO DAILY 09/19/17 10/12/19 History [Vitamin D3] Folic Acid 1 mg PO DAILY 09/19/17 10/12/19 History Methotrexate Sodium [Methotrexate] 15 mg PO TH 09/19/17 10/12/19 History Simvastatin [Zocor] 10 mg PO DAILY 09/19/17 10/12/19 History amLODIPine [Norvasc] 5 mg PO DAILY 09/19/17 10/12/19 History Albuterol Inhaler [Ventolin Hfa 1 puff INHALATION RT-QID PRN 10/12/19 10/12/19 History Inhaler] Cetirizine HCl 10 mg PO DAILY 10/12/19 10/12/19 History Codeine Phosphate/Guaifenesin 10 ml PO Q4H PRN 10/12/19 10/12/19 History [Guaifen-Codeine 100-10 mg/5 ml] Cyanocobalamin (Vitamin B-12) 1,000 mcg PO DAILY 10/12/19 10/12/19 History [Vitamin B-12] Levothyroxine Sodium 100 mcg PO DAILY 10/12/19 10/12/19 History predniSONE 5 mg PO DAILY 10/12/19 10/12/19 History Allergies Allergy/AdvReac Type Severity Reaction Status Date / Time No Known Allergies Allergy Verified 10/12/19 14:05 Physical Exam Osteopathic Statement: *. No significant issues noted on an osteopathic structural exam other than those noted in the History and Physical/Consult. Vitals: Vital Signs Temp Pulse Pulse Resp BP BP Pulse Ox 10/12/19 14:51 98.1 F 101 H 18 112/67 98 10/12/19 14:45 97.6 F 108 H 12 156/87 92 L 10/12/19 13:56 102 H 20 121/76 97 10/12/19 13:00 97 22 104/72 98 10/12/19 11:48 98.1 F 109 H 20 118/74 97 Intake and Output 10/12/19 10/12/19 10/12/19 06:59 14:59 22:59 Other: Weight 53.524 kg General: chronically ill appearing, no distress, appears at stated age, cachetic, temporal wasting Derm: no unusual rashes/lesions no unusual ecchymoses, warm, dry Head: atraumatic, normocephalic, symmetric Eyes: EOMI, no lid lag, anicteric sclera, pupils equal round reactive to light ENT: Nose and ears atraumatic, no thrush, no pharyngeal erythema Neck: No thyromegaly, no cervical lymphadenopathy, trachea midline, supple Mouth: no lip lesion, mucus membranes moist Cardiovascular: S1S2 reg, no murmur, positive posterior tibial pulse bilateral, no edema, capillary refill less than 2 seconds Lungs: Decreased bs right base with ronchi, no rhonchi, no rales , no accessory muscle use Abdominal: soft, nontender to palpation, no guarding, no appreciable organomegaly, normal bowel sounds Ext: no gross muscle atrophy, muscle strength 4 out of 5 in all 4 extremities grossly, no contractures, Neuro: CN II-XI grossly intact, light touch intact all 4 extremities, finger to nose within normal limits, Psych: Alert, oriented, appropriate affect Results CBC & Chem 7: 10/12/19 12:20 10/12/19 12:20 Labs: Abnormal Lab Results - Last 24 Hours (Table) 10/12/19 10/12/19 10/12/19 Range/Units 12:20 12:20 12:20 Lymphocytes # 0.7 L (1.0-4.8) k/uL D-Dimer 3.30 H (<0.60) mg/L FEU Sodium 133 L (137-145) mmol/L Alkaline Phosphatase 151 H (38-126) U/L CT scan - chest: report reviewed Thrombosis Risk Factor Assmnt - DVT/VTE Prophylaxis DVT/VTE Prophylaxis: Pharmacologic Prophylaxis ordered - Choose All That Apply Each Risk Factor Represents 3 Points: Age 75 years or older Thrombosis Risk Factor Assessment Total Risk Factor Score: 3 Thrombosis Risk Factor Assessment Level: Moderate Risk Assessment and Plan Assessment: Right sided chest pain -Likely secondary to large pleural effusion -Pain control with tramadol, [place], and morphine as needed for escalating pain -Consult pulmonary to consider thoracentesis Shortness of breath -Likely multifactorial secondary to recent PDL 1 infusion and right sided pleural effusion -Bronchodilators -Consult pulmonary -Outpatient cardiac follow-up Squamous cell carcinoma of the lung stage III with malignancy related pain -Pain control as dictated above -Consult oncology -Consider palliative care and outpatient setting (see ACP conversation) Sinus tachycardia -Following with Dr. Oliveira -Continue outpatient follow-up Chronic: Hypertension Dyslipidemia DVT prophylaxis: Lovenox Discussed with: PAtinet, , ED physician Anticipated discharge: 1-[address]: home with palliative A total of 65 minutes was spent on the care of this complex patient more than 50% of the time was spent in counseling and care coordination.
[2019-10-12] MEDS: IPRATROPIUM-ALBUTEROL 3 ML NEB INHALATION SCH (19:18)
[2019-10-12] MEDS: guaiFENesin-Coden 100-10MG/5ML 10 ML CUP PO PRN (21:06)
[2019-10-13 05:51] LABS: HCT 40.2 % (34.0-46.0); HGB 12.6 gm/dL (11.4-16.0); MCH 29.4 pg (25.0-35.0); MCHC 31.4 g/dL (31.0-37.0); MCV 93.7 fL (80.0-100.0); Platelet Count 248 k/uL (150-450); RBC 4.29 m/uL (3.80-5.40); RDW 14.6 % (11.5-15.5); WBC 5.3 k/uL (3.8-10.6)
[2019-10-13] MEDS: LEVOTHYROXINE 100 MCG TAB PO SCH (05:55)
[2019-10-13 06:02] LABS: African American GFR (CKD) >90 (>60 ml/min/1.73 sqM); Anion Gap 5 mmol/L; Blood Urea Nitrogen 9 mg/dL (7-17); Calcium 8.9 mg/dL (8.4-10.2); Carbon Dioxide 27 mmol/L (22-30); Chloride 104 mmol/L (98-107); Glucose 97 mg/dL (74-99); Magnesium 1.9 mg/dL (1.6-2.3); Non-African American GFR(CKD) >90 (>60 ml/min/1.73 sqM); Phosphorus 3.2 mg/dL (2.5-4.5); Potassium 4.2 mmol/L (3.5-5.1); Sodium 136 mmol/L (137-145)
[2019-10-13] MEDS: LORATADINE 10 MG TAB PO SCH (07:30)
[2019-10-13] MEDS: ASPIRIN 81 MG PO SCH (07:30)
[2019-10-13] MEDS: predniSONE 5 MG TAB PO SCH (07:30)
[2019-10-13] MEDS: MELOXICAM 7.5 MG TAB PO SCH (07:31)
[2019-10-13] MEDS: FOLIC ACID 1 MG TAB PO SCH (07:32)
[2019-10-13] MEDS: amLODIPine 5 MG TAB PO SCH (07:32)
[2019-10-13] MEDS: CHOLECALCIFEROL 1,000 UNIT TAB PO SCH (07:32)
[2019-10-13] MEDS: CYANOCOBALAMIN 500 MCG TAB PO SCH (07:32)
[2019-10-13] MEDS: IPRATROPIUM-ALBUTEROL 3 ML NEB INHALATION SCH ×4 (07:55→19:20)
[2019-10-13] MEDS: SODIUM CHLORIDE 0.9% 1,000 ML IV SCH (10:57)
--- NOTE | 2019-10-13 11:02 | CONS ---
CONSULTATION DATE OF SERVICE: 10/13/2019 REASON FOR CONSULTATION: Back pain and some shortness of breath. This is a 78-year-old female with a history of lung cancer. The patient has had previous chemotherapy and now is currently receiving Opdivo infusions. The patient also had more than 30 radiation treatments. Anyway, the patient comes into the emergency room complaining of back pain. It is primarily on the right side and primarily laterally and posteriorly located. The patient had a chest CT apparently last month for the similar complaint. On this admission, she had a CT angiogram which was negative for pulmonary embolism. She had quite a few changes in the chest, which I will elucidate later. She denies any fever or chills. She is not coughing up any phlegm. She denies any hemoptysis. She denies any nausea, vomiting or diarrhea. She also denies any genitourinary complaints. She states that these Opdivo infusions are making her feel very tired. In fact, there is a note from her primary hospitalist, Dr. Norman basically alluding to the fact that the patient may want to start palliative care. Currently, her only complaint is the pain in the posterior chest, which has been improved on tramadol, and also shortness of breath on exertion. HOME MEDICATIONS: Reviewed. She is on aspirin, Celebrex, vitamin D3, folic acid, methotrexate, Zocor, Norvasc, albuterol inhaler, Zyrtec, codeine-containing cough syrup, vitamin B12, levothyroxine, prednisone 5 mg a day. ALLERGIES: Denied. PAST MEDICAL HISTORY: Includes lung cancer, hyperlipidemia, hypertension, rheumatoid arthritis, and hypothyroidism. She also has a history of melanoma on her right cheek. SURGICAL HISTORY: Surgical history includes left knee replacement and skin lesion removal. She has also had back surgery. SOCIAL HISTORY: Positive for previous tobacco use. She does not smoke currently. She denies any alcohol or illicit drug use. FAMILY HISTORY: Positive for a son with leukemia, a daughter with breast cancer, and a mother with lymphoma. REVIEW OF SYSTEMS: CONSTITUTIONAL: Negative. NEUROLOGIC: Negative HEENT: Negative. CARDIOVASCULAR: Back pain PULMONARY: Shortness of breath GI: Negative. : Negative. RHEUMATOLOGIC: Negative. IMMUNOLOGIC: Negative. ENDOCRINOLOGIC: Negative. DERMATOLOGIC: Negative. PHYSICAL EXAMINATION: VITAL SIGNS: Current vital signs are reviewed. Temperature is 98, heart rate 96, respiratory rate 12, blood pressure is 116/60, mean 78, room-air saturation 92%. GENERAL: She appears in no acute distress. There is no conversational dyspnea, audible wheezing or use of accessory muscles. She actually looks quite comfortable. HEENT: Examination is grossly unremarkable. NECK: Supple. Full range of motion. No adenopathy. Neck veins are flat. CARDIOVASCULAR: Examination reveals regular rhythm and rate. Heart rate about 90 beats per minute. Heart sounds are distant. S1, S2 normal. There may be a soft systolic murmur noted. PULMONARY: Pulmonary examination reveals left lung to be clear. The right lung has got some diffuse rhonchi and there are severely diminished breath sounds at the right lung base. No crackles. ABDOMEN: Soft. Bowel sounds are heard. EXTREMITIES: Intact. No cyanosis, clubbing, or edema. SKIN: Without rash. NEUROLOGIC: Examination is brief but nonfocal. LABS: Reviewed. White count 5.3, hemoglobin 12.6, hematocrit 40.2, platelet count 348,000, PT is 10.5, INR 1.0, PTT is 28.4. D-dimer 3.30. Sodium 136, potassium 4.2, chloride 104, CO2 27, anion gap is 5. BUN and creatinine were 9 and 0.54. Troponin was less than 0.012. N-terminal proBNP is 620. Microbiology is negative. X-RAY: Chest x-ray shows a right parahilar mass, right-sided volume loss, fluid in the minor fissure, and also pleural effusion on the right. There is also some basilar atelectasis. CT angiogram shows no evidence of pulmonary embolism. There is on CT angiogram evidence of right hilar mass measuring 5 cm with postobstructive pneumonia and volume loss. There is a moderate pleural effusion on the right. MEDICATIONS: Medications are reviewed. She is on Tylenol, albuterol updrafts, amlodipine, aspirin, vitamin D3, vitamin B12, folic acid, codeine-containing cough syrup, DuoNeb, levothyroxine, loratadine, meloxicam, methotrexate, morphine, Narcan, Zofran, prednisone, saline IV, tramadol. ASSESSMENT: 1. Back pain of unclear etiology, which may relate to her underlying lung malignancy. Malignant disease is on the right side and her back pain is on the right side. 2. No evidence of pulmonary embolism. 3. Lung cancer, squamous cell type, status post chemo radiation and more recently Opdivo. 4. History of previous tobacco use. 5. History of hyperlipidemia. 6. History of hypertension. 7. History of rheumatoid arthritis. 8. History of melanoma. PLAN: The patient is considering palliative care. She does complain of shortness of breath. We will order an ultrasound to see if there is fluid worth draining. She may be discharged home today. Additional recommendations and suggestions are forthcoming. She is typically followed up with my partner, Dr. Gutierrez. She is getting frustrated because any time she gets any sort of treatment for her cancer, it really wipes her out, she states. Again, she is strongly considering palliative care. Additional recommendations and suggestions are forthcoming. We will continue to follow. KARI / GAURI: [id number] /
--- NOTE | 2019-10-13 11:54 | US ---
EXAMINATION TYPE: US chest DATE OF EXAM: 10/13/2019 COMPARISON: CT chest 10/12/2019 CLINICAL HISTORY: US right chest with markings. TECHNIQUE: Targeted ultrasound of the posterior lower right hemithorax EXAM MEASUREMENTS: Right Pleural Effusion pocket size: 9.6 cm Right skin to tissue: 3.8 cm Right skin surface to fluid distance: 1.7 cm internal echoes visualized within pocket Right side marked for possible thoracentesis outside the dept. Pulmonologists are able to review the images in the patient?s EMR. IMPRESSIONS: Moderate right pleural effusion
--- NOTE | 2019-10-13 12:48 | PCN ---
PROCEDURE NOTE PROCEDURE PERFORMED: Right-sided thoracentesis. PREOP DIAGNOSIS: Right pleural effusion. POSTOP DIAGNOSIS: Right pleural effusion. HAND PROFILER: Dr. Lund and Dr. Bennett. There was informed consent. There was universal timeout. A time-out was completed verifying correct patient, procedure, site, positioning , and implant (s) or special equipment if applicable. Ultrasound guidance was used and appropriate fluid pocket was identified and marked. Patient was positioned, prepped and draped in usual sterile fashion. Lidocaine was used to anesthetize the area. A Thoracentesis catheter was introduced into the pleural space and fluid was removed. Blood loss was none. A chest x-ray was ordered to evaluate for pneumothorax. Total Fluid Removed 850 mL Color of Fluid: Red/brown Fluid was sent for appropriate laboratory tests. Patient tolerated the procedure well. A stat chest x-ray was ordered. There was no immediate complications. MMODL / IJN: [id number] /
--- NOTE | 2019-10-13 12:56 | XR ---
EXAMINATION TYPE: XR chest 1V portable DATE OF EXAM: 10/13/2019 COMPARISON: Prior chest x-ray 10/12/2019 HISTORY: Status post thoracentesis TECHNIQUE: Single frontal view of the chest is obtained. FINDINGS: Findings are similar to prior exam. IMPRESSION: No evident complication status post thoracentesis.
[2019-10-13 13:25] LABS: Total Protein 5.6 g/dL (6.3-8.2)
[2019-10-13 13:38] LABS: Appearance,BF Hazy; Color,BF Yellow; Nucleated Cells, Body Fluid 1175 /uL; RBC, Body Fluid 4940 /uL
--- NOTE | 2019-10-13 13:39 | P.CONS ---
History of Present Illness - Reason for Consult Consult date: 10/13/19 Squamous Cell Carcinoma with recent progression Requesting physician: Liliam Norman - Chief Complaint sob - History of Present Illness Follow up on lung cancer Joselyn is a pleasant 78 year old female well known to our practice for treatment and monitoring of her known and now progressive lung cancer. Primary oncologist Dr. Solo. SHe originally presented in September of [address] Zhang with nagging dry cough X 2-3 months, CXR revealed RLL mass > CT Scan of chest 09/27/17 revealed 5.8X5.0X4.4 cm RLL mass with Hilar Lymphadenopathy. PET Scan confirmed suspected malignant process in area of mass/Lymphadenopathy (SUV 12) with mediastinal lymphadenopathy. She had CT-Guided biopsy on 09/27/17 revealing poorly-differentiated Squamous cell Ca. The patient developed R apical pneumothorax> admitted to [facility], chest tube placed. Joselyn smoked 1 PPD X 40 years, quit 2011, denies ETOH use. She was also taking MTX for treatment of RA (Dr Fry). At the time of diagnosis she admitted loosing 10 lbs in last 2-3 months, but overall felt well. She has advanced COPD per Dr Gutierrez, but not O2 nor steroids dependent. On 10/23/2017 she began treatment with chemotherapy weekly and concurrent radiation. At first difficult time with chemotherapy, but ultimately was able to complete definitive treatment. She was then placed on Maintenance therapy with immune therapy imfinzi in February 2018 - January 2019 She did well until September 2019 when unfortunetly her PET scan revealed definitive progression. Increased SOB, Phlegm, and cough in late September treated with levaquin and steroids, although her symptoms persisted. She has been struggling this past month with relentless fatigue. And overall felt she is getting worse since starting on opdivo in September 2019. CT Scan of chest revealed progressive infiltrative process RLL. SHe now presents to [facility] for similar complaints. On imaging pleural effusion noted as well as picture of likely post obstructive pneumonia. Dr. Lund is following and performed thoracentesis today. 850cc removed. Review of Systems A 14 point review of systems assessed and completed and all negative except HPI Past Medical History Past Medical History: Cancer, Hyperlipidemia, Hypertension, Rheumatoid Arthritis (RA), Skin Disorder, Thyroid Disorder Additional Past Medical History / Comment(s): melanoma - skin lesion on rt cheek, Stage III lung cancer Squamous Cell, osteoprosis History of Any Multi-Drug Resistant Organisms: None Reported Past Surgical History: Back Surgery, Orthopedic Surgery Additional Past Surgical History / Comment(s): skin lesion removed, lt knee replacement, Bronch with biopsy, b/l knee arthroscopy, b/l cataract, right shoulder surgery for rotator cuff repair, bakers cyst rihgt knee Past Anesthesia/Blood Transfusion Reactions: No Reported Reaction Additional Past Anesthesia/Blood Transfusion Reaction / Comm: no bld transfusion Past Psychological History: No Psychological Hx Reported Smoking Status: Former smoker Past Alcohol Use History: None Reported Past Drug Use History: None Reported Additional Drug Use History / Comment(s): No cane or walker. No oxygen. Lives with - Past Family History Son(s) Family Medical History: Cancer Additional Family Medical History / Comment(s): leukemia Daughter(s) Family Medical History: Cancer Additional Family Medical History / Comment(s): breast Mother Family Medical History: Cancer Additional Family Medical History / Comment(s): lymphoma Medications and Allergies Home Medications Medication Instructions Recorded Confirmed Type Aspirin [Children's Aspirin] 81 mg PO DAILY 09/19/17 10/12/19 History Celecoxib [CeleBREX] 200 mg PO BID 09/19/17 10/12/19 History Cholecalciferol (Vitamin D3) 2,000 unit PO DAILY 09/19/17 10/12/19 History [Vitamin D3] Folic Acid 1 mg PO DAILY 09/19/17 10/12/19 History Methotrexate Sodium [Methotrexate] 15 mg PO TH 09/19/17 10/12/19 History Simvastatin [Zocor] 10 mg PO DAILY 09/19/17 10/12/19 History amLODIPine [Norvasc] 5 mg PO DAILY 09/19/17 10/12/19 History Albuterol Inhaler [Ventolin Hfa 1 puff INHALATION RT-QID PRN 10/12/19 10/12/19 History Inhaler] Cetirizine HCl 10 mg PO DAILY 10/12/19 10/12/19 History Codeine Phosphate/Guaifenesin 10 ml PO Q4H PRN 10/12/19 10/12/19 History [Guaifen-Codeine 100-10 mg/5 ml] Cyanocobalamin (Vitamin B-12) 1,000 mcg PO DAILY 10/12/19 10/12/19 History [Vitamin B-12] Levothyroxine Sodium 100 mcg PO DAILY 10/12/19 10/12/19 History predniSONE 5 mg PO DAILY 10/12/19 10/12/19 History Allergies Allergy/AdvReac Type Severity Reaction Status Date / Time No Known Allergies Allergy Verified 10/12/19 14:05 Physical Exam Vitals: Vital Signs Temp Pulse Pulse Resp BP BP Pulse Ox 10/13/19 12:44 110 H 14 122/75 95 10/13/19 11:22 100 10/13/19 11:08 96 10/13/19 08:09 96 10/13/19 07:55 96 10/13/19 07:29 98 F 98 12 116/60 92 L 10/12/19 23:11 97.6 F 98 18 106/66 91 L 10/12/19 19:30 96 10/12/19 19:23 97.6 F 98 18 109/71 91 L 10/12/19 19:18 96 10/12/19 14:51 98.1 F 101 H 18 112/67 98 10/12/19 14:45 97.6 F 108 H 12 156/87 92 L 10/12/19 13:56 102 H 20 121/76 97 Intake and Output 10/12/19 10/13/19 10/13/19 22:59 06:59 14:59 Intake Total 240 Balance 240 Intake: Oral 240 Other: Voiding Method Toilet Toilet Toilet # Voids 1 1 4 Gen: Thin, Chronically ill appearing Pale Neck Supple O/P without lesions or thrush Lungs: Diminished throughout and increased effort noted ABdomen: Soft, FLat Heart: Tachy Extremities: No edema, no rash Psych: Calm and appropriate. Results CBC & Chem 7: 10/13/19 05:33 10/13/19 05:33 Labs: Abnormal Lab Results - Last 24 Hours (Table) 10/13/19 Range/Units 05:33 Sodium 136 L (137-145) mmol/L Chest x-ray: report reviewed CT scan - chest: report reviewed Assessment and Plan (1) Squamous cell carcinoma lung Current Visit: Yes Status: Acute Code(s): C34.90 - MALIGNANT NEOPLASM OF UNSP PART OF UNSP BRONCHUS OR LUNG SNOMED Code(s): 155724684 (2) Dyspnea Current Visit: Yes Status: Acute Code(s): R06.00 - DYSPNEA, UNSPECIFIED SNOMED Code(s): 599654199 (3) Pleural effusion, right Current Visit: Yes Status: Acute Code(s): J90 - PLEURAL EFFUSION, NOT ELSEWHERE CLASSIFIED SNOMED Code(s): 09919005 (4) Postobstructive pneumonia Current Visit: Yes Status: Acute Code(s): J18.9 - PNEUMONIA, UNSPECIFIED ORGANISM SNOMED Code(s): 254437561 Plan: Assessment and Recommendations: 1. Dyspnea and SOB: - Likely secondary to post obstructive pneumonia and new increasing Right Pleural effusion - Status POst Thoracentesis by Dr. Lund [facility] off - Await pleural fluid cytology 2. Squamous Cell Carcinoma of lung, Stage IIIL - Dx: 2018 and status post definitive treatment with chemo/radiation and one year of immune therapy maintenance with imfinzi - Progression in September 2019 - Started on opdivo 3. Post Obstructive Pneumonia: - Antibiotics per primary team and Pulmonary - WIll have Dr. Allan from radiation oncology evaluate for possible pallaitive treatment with XRT directed therapy. Plan: - Await Path - Her symptoms appear to be more related to cancer progression than immune related effect - Will check TSH and Cortisol in am morning draw - Defer Pneumonia treatment to pulm -Add lidocaine patch - Hold Opdivo until improvement in current situation Discussed with Primary Team Thank you for allowing us to participate in the care of this patient, we will follow with you.
[2019-10-13 13:40] LABS: Mononuclear WBC,Body Fluid 81 %; Polynuclear WBC,Body Fluid 19 %; Total Cells Counted,Body Fluid 100
[2019-10-13] MEDS: traMADol 50 MG TAB PO PRN (13:51)
[2019-10-13] MEDS: guaiFENesin-Coden 100-10MG/5ML 10 ML CUP PO PRN ×2 (13:52→23:08)
[2019-10-13] MEDS: HYDROcodone/APAP 5-325MG 1 EACH TAB PO PRN ×2 (14:14→23:08)
[2019-10-13] MEDS ORDERED: KETOROLAC 30 MG/ML 1 ML VIAL IVP PRN (16:21)
[2019-10-13] MEDS ORDERED: LIDOCAINE 5% PATCH TOPICAL SCH (17:00)
[2019-10-13] MEDS ORDERED: BENZONATATE 100 MG CAP PO PRN (17:36)
--- NOTE | 2019-10-13 18:18 | P.PN ---
Subjective Progress Note Date: 10/13/19 (delayed charting initally seen at 1245, reseen at 1645) Principal diagnosis: chest pain Patient is a 78-year-old female with stage III squamous cell carcinoma of the lung currently on Opdivo therapy with Dr. Solo, hypertension, and hypothyroidism who presented with rib pain. In the emergency department she underwent an extensive evaluation. She was slightly tachycardic on arrival. Her laboratory analysis showed sodium of 133 and an elevated d-dimer. She underwent a CTA of the chest which did not demonstrate any evidence of pulmonary emboli confirmed her known right sided lung cancer with atelectasis and moderate to large pleural effusion. Initially they were concerned for possible postobstructive pneumonia and she was given a dose of cefepime. Arrangements were made for admissions. Pneumonia was considered unlikely with no fevers, change in sputum production, or elevated white count, patient also did not look toxic. She was founf to have a significant pleural effusion. Pulmonary was consulted and agreed with pleural effusion and no pneumonia. Patient underwent thoracentesis with removal of 850 mL from the right side of her chest. Initial plan was for discharge home after 4, however she developed increase in her right sided rib/back pain and it moved to her anterior chest. She was feeling more uncomfortable. She was seen by oncology who recommended radiation oncology consultation in the morning regarding possible palliative radiation. Patient seen and examined at bedside. On initial exam in the morning she was complaining of shortness of breath, still not being able to get to the bathroom without being significantly winded, back/rib pain, and feeling tired. On repeat exam she was complaining of anterior rib pain near the base, increa sing coughing, but some improvement in shortness of breath. Objective - Vital Signs Vital signs: Vital Signs Temp 98 F 10/13/19 07:29 Pulse 116 H 10/13/19 14:38 Resp 14 10/13/19 12:44 BP 122/75 10/13/19 12:44 Pulse Ox 95 10/13/19 12:44 Intake & Output 10/12/19 10/13/19 10/13/19 18:59 06:59 18:59 Intake Total 240 240 Balance 240 240 Weight 53.524 kg Intake: Oral 240 240 Other: Voiding Method Toilet Toilet # Voids 1 4 - Exam General: non toxic, no distress, appears at stated age, chronically ill- appearing, cachectic Derm: warm, dry Head: atraumatic, normocephalic, symmetric Eyes: EOMI, no lid lag, anicteric sclera Mouth: no lip lesion, mucus membranes moist Cardiovascular: S1S2 reg, no murmur, positive posterior tibial pulse bilateral, Lungs: Initial exam decreased breath sounds right base, repeat exam rub right base, no accessory muscle use Abdominal: soft, nontender to palpation, no guarding, no appreciable organomeg missy Ext: no gross muscle atrophy, no edema, no contractures Neuro: CN II-XI grossly intact, no focal neuro deficits Psych: Alert, oriented, appropriate affect - Labs CBC & Chem 7: 10/13/19 05:33 10/13/19 05:33 Labs: Abnormal Lab Results - Last 24 Hours (Table) 10/13/19 10/13/19 Range/Units 05:33 05:33 Sodium 136 L (137-145) mmol/L Total Protein 5.6 L (6.3-8.2) g/dL Microbiology - Last 24 Hours (Table) 10/13/19 12:30 Body Fluid Culture - Preliminary Pleural Fluid 10/12/19 14:21 Blood Culture - Preliminary Blood No Growth after 24 hours Assessment and Plan Assessment: Intractable Right sided chest pain with large right-sided pleural effusion -Status post thoracentesis -Pain control with tramadol, [place], and morphine as needed for escalating pain -Lidoderm patch ordered -Pulmonary recommendations appreciated Shortness of breath -Likely multifactorial secondary to recent PDL 1 infusion and right sided pleur al effusion -Bronchodilators -pulm and oncolology recs appreciated -Outpatient cardiac follow-up Squamous cell carcinoma of the lung stage III with malignancy related pain -Pain control as dictated above -oncolology recs appreciated -Consider palliative care and outpatient setting (see ACP conversation) -Rad onc eval for possible palliative radiation Sinus tachycardia -Following with Dr. Gay -Continue outpatient follow-up Chronic: Hypertension Dyslipidemia Initial plan was for discharge home after paracentesis, however patient developed significant anterior rib pain after thora, coughing. She did not feel up to going home. She will be monitored one more day and oncology has requested radiation oncology to evaluate the patient on 10/13 to see she is a candidate for palliative radiation. DVT prophylaxis: Lovenox Discussed with: Mayi, , ED physician Anticipated discharge: 1-[address]: home with palliative A total of 65 minutes was spent on the care of this complex patient more than 50% of the time was spent in counseling and care coordination.
[2019-10-14] MEDS: SODIUM CHLORIDE 0.9% 1,000 ML IV SCH (01:40)
[2019-10-14] MEDS: LEVOTHYROXINE 100 MCG TAB PO SCH (05:57)
[2019-10-14] MEDS: IPRATROPIUM-ALBUTEROL 3 ML NEB INHALATION SCH ×2 (07:17→12:08)
[2019-10-14 09:03] VITALS: BP 135/78; RESP 16; TEMP 98.1
[2019-10-14] MEDS: amLODIPine 5 MG TAB PO SCH (09:20)
[2019-10-14] MEDS: FOLIC ACID 1 MG TAB PO SCH (09:20)
[2019-10-14] MEDS: CYANOCOBALAMIN 500 MCG TAB PO SCH (09:21)
[2019-10-14] MEDS: LORATADINE 10 MG TAB PO SCH (09:21)
[2019-10-14] MEDS: MELOXICAM 7.5 MG TAB PO SCH (09:21)
[2019-10-14] MEDS: ASPIRIN 81 MG PO SCH (09:21)
[2019-10-14] MEDS: predniSONE 5 MG TAB PO SCH (09:21)
[2019-10-14] MEDS: CHOLECALCIFEROL 1,000 UNIT TAB PO SCH (09:21)
--- NOTE | 2019-10-14 10:26 | XR ---
EXAMINATION TYPE: XR chest 2V DATE OF EXAM: 10/14/2019 COMPARISON: Prior chest x-ray 10/13/2019 HISTORY: Redness of breath TECHNIQUE: Frontal and lateral views of the chest are obtained. FINDINGS: There is been interval development of a right pleural effusion, the right hemidiaphragm is obscured. Pleural parenchymal changes are otherwise stable, some blunting of the left gastric angle suggests small effusion. IMPRESSION: Development of right pleural effusion and probable associated atelectasis, suspect a sma ll left effusion
--- NOTE | 2019-10-14 11:48 | P.PN ---
Subjective Progress Note Date: 10/14/19 78-year-old female patient with known history of squamous cell carcinoma of the right lower lobe, locally advanced, post chemoradiation therapy presented with worsening shortness of breath. The patient is currently receiving immunotherapy. She had a right-sided pleural effusion. Drainage was done yeste rday and approximately 800 mL of fluid was aspirated from the right lung. Fluid characteristics still pending for now. Fluid cytology is pending for now. The patient is still having some skeletal chest wall pain along the right side of the chest. No fever. No chills. No hemoptysis. No pleurisy. The follow-up CAT scan showed some residual tumor in the right lower lobe along with some narrowing of the radius segments of the right lower lobe bronchus. She is afebrile with a temperature 98.1. Pulse ox 94% and it's about 2 by nasal cannula. She is not taking any antibiotics for now. No hemoptysis. No pleurisy. She is on 5 mg of prednisone and she is also on methotrexate on a long-term basis regarding her rheumatoid arthritis. Objective - Vital Signs Vital signs: Vital Signs Temp 98.1 F 10/14/19 08:57 Pulse 104 H 10/14/19 08:57 Resp 16 10/14/19 08:57 BP 135/78 10/14/19 08:57 Pulse Ox 94 L 10/14/19 08:57 Intake & Output 10/13/19 10/14/19 10/14/19 18:59 06:59 18:59 Intake Total 240 Balance 240 Intake: Oral 240 Other: Voiding Method Toilet Toilet Toilet # Voids 4 2 1 - Exam Head exam was generally normal. There was no scleral icterus or corneal arcus. Mucous membranes were moist. Neck was supple and without jugular venous distension, thyromegaly, or carotid bruits. Carotids were easily palpable bilaterally. There was no adenopathy. Lungs sounds are diminished in the right lung base compared to the left. Cardiac exam revealed the PMI to be normally situated and sized. The rhythm was regular and no extrasystoles were noted during several minutes of auscultation. The first and second heart sounds were normal and physiologic splitting of the second heart sound was noted. There were no murmurs, rubs, clicks, or gallops. Abdominal exam revealed normal bowel sounds. The abdomen was soft, non-tender, and without masses, organomegaly, or appreciable enlargement of the abdominal aorta. Examination of the extremities revealed easily palpable radial, femoral and pedal pulses. There was no cyanosis, clubbing or edema. Examination of the skin revealed no evidence of significant rashes, suspicious appearing nevi or other concerning lesions. 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 2 right-sided pleural effusion post thoracentesis and drainage of 850 mL of pleural fluid 3 right lower lobe opacification a combination of atelectasis/tumor/fluid. Obviously a recurrent tumor or a persistent. The right lower lobe is suspected and the basics of the right lower lobar quite narrowed. Superimposed pneumonia is likely. 4 hypertension 5 hyperlipidemia 6 sinus tachycardia 7 shortness of breath, multifactorial, essentially secondary to above 8 right-sided skeletal chest wall pain. Rule out pleural involvement with ca ncer. Rule out skeletal metastases. Plan Check pro-calcitonin level Check pleural fluid cytology Check pleural fluid chemistry Pain control with Gleason, tramadol and morphine as needed Lidoderm patch May consider bone scan if persistent skeletal chest wall pain We'll continue to follow. This is oxidation time of discharge, assess for oxygen needs
[2019-10-14 12:19] VITALS: PULSE 100
--- NOTE | 2019-10-14 12:56 | P.PN ---
Subjective Progress Note Date: 10/14/19 Principal diagnosis: nsclca - progressive Objective - Vital Signs Vital signs: Vital Signs Temp 98.1 F 10/14/19 08:57 Pulse 100 10/14/19 12:18 Resp 16 10/14/19 08:57 BP 135/78 10/14/19 08:57 Pulse Ox 94 L 10/14/19 08:57 Intake & Output 10/13/19 10/14/19 10/14/19 18:59 06:59 18:59 Intake Total 240 Balance 240 Intake: Oral 240 Other: Voiding Method Toilet Toilet Toilet # Voids 4 2 1 - Exam Gen: Thin, Chronically ill appearing Pale Neck Supple O/P without lesions or thrush Lungs: Diminished throughout and increased effort noted ABdomen: Soft, FLat Heart: Tachy Extremities: No edema, no rash Psych: Calm and appropriate. - Labs CBC & Chem 7: 10/13/19 05:33 10/13/19 05:33 Labs: Abnormal Lab Results - Last 24 Hours (Table) 10/13/19 Range/Units 05:33 Total Protein 5.6 L (6.3-8.2) g/dL Microbiology - Last 24 Hours (Table) 10/13/19 12:30 Gram Stain - Preliminary Pleural Fluid Body Fluid Culture - Preliminary 10/12/19 14:21 Blood Culture - Preliminary Blood No Growth after 24 hours Assessment and Plan (1) Squamous cell carcinoma lung Current Visit: Yes Status: Acute Code(s): C34.90 - MALIGNANT NEOPLASM OF UNSP PART OF UNSP BRONCHUS OR LUNG SNOMED Code(s): 363146542 (2) Dyspnea Current Visit: Yes Status: Acute Code(s): R06.00 - DYSPNEA, UNSPECIFIED SNOMED Code(s): 312525514 (3) Pleural effusion, right Current Visit: Yes Status: Acute Code(s): J90 - PLEURAL EFFUSION, NOT ELSEWHERE CLASSIFIED SNOMED Code(s): 77926524 (4) Postobstructive pneumonia Current Visit: Yes Status: Acute Code(s): J18.9 - PNEUMONIA, UNSPECIFIED ORGANISM SNOMED Code(s): 795024244 Plan: Assessment and Recommendations: 1. Dyspnea and SOB: - Likely secondary to post obstructive pneumonia and new increasing Right Pleural effusion - Status POst Thoracentesis by Dr. Lund 850cc off - Await pleural fluid cytology 2. Squamous Cell Carcinoma of lung, Stage IIIL - Dx: 2018 and status post definitive treatment with chemo/radiation and one year of immune therapy maintenance with imfinzi - Progression in September 2019 - Started on opdivo 3. Post Obstructive Pneumonia: - Antibiotics per primary team and Pulmonary - WIll have Dr. Allan from radiation oncology evaluate for possible pallaitive treatment with XRT directed therapy. 4. Skeletal Pain: - This seems worsened after thoracentesis and appears more consistent - In light of recent progression I feel bone scan is needed to further evaluate Plan: - Await Path - Her symptoms appear to be more related to cancer progression than immune related effect - Will check TSH and Cortisol in am morning draw - Defer Pneumonia treatment to pulm - Status post repeat thoracentesis today - Bone scan evaluation for skeletal pain - Continue lidocaine patch - Hold Opdivo until improvement in current situation - Bowel Regimen with recent addition of narcotics Discussed with Primary Team
--- NOTE | 2019-10-14 13:43 | P.DS ---
Providers Date of admission: 10/12/19 14:42 Expected date of discharge: 10/14/19 Attending physician: Liliam Norman DO Consults: 10/12/19 17:19 Consult Physician Routine Consulting Provider: Fei Lund Consult Reason/Comments: right pleural effusion wiht pain Do you want consulting provider notified?: Yes Consult Physician Routine Consulting Provider: Alok Lopes Consult Reason/Comments: squamous cell Ca stage III Do you want consulting provider notified?: Yes 10/13/19 13:39 Consult Physician Routine Consulting Provider: Neil Schroeder Consult Reason/Comments: SCC - Progressed. POst obstructive pneumonia Do you want consulting provider notified?: Yes Primary care physician: [facility] Course: Discharge Diagnosis: Intractable right-sided chest pain Large right-sided pleural effusion Shortness of breath multifactorial Squamous cell carcinoma of the lung stage III with malignancy related pain Acute hypoxic respiratory failure Sinus tachycardia Hypertension Dyslipidemia Hospital Course: Patient is a 78-year-old female with stage III squamous cell carcinoma of the lung currently on Opdivo therapy with Dr. Solo, hypertension, and hypothyroidism who presented with rib pain. In the emergency department she underwent an extensive evaluation. She was slightly tachycardic on arrival. Her laboratory analysis showed sodium of 133 and an elevated d-dimer. She underwent a CTA of the chest which did not demonstrate any evidence of pulmonary emboli confirmed her known right sided lung cancer with atelectasis and moderate to large pleural effusion. Initially they were concerned for possible postobstructive pneumonia and she was given a dose of cefepime. Arrangements were made for admissions. Pneumonia was considered unlikely with no fevers, change in sputum production, or elevated white count, patient also did not look toxic. She was found to have a significant pleural effusion. Pulmonary was consulted and agreed with pleural effusion and no pneumonia. Patient underwent thoracentesis with removal of 850 mL from the right side of her chest. Initial plan was for discharge home after thora, however she developed increase in her right sided rib/back pain and it moved to her anterior chest. She was feeling more uncomfortable. She was seen by oncology who recommended radiation oncology consultation in the morning regarding possible palliative radiation. By the morning of 10/13 her rib pain have resolved. She is feeling back to her baseline. She was still feeling frustrated with the amount of tiredness, fatigue, and her chronic cough. She was noted to have hypoxia on room air by nursing staff. She underwent a repeat chest x-ray which showed recurrence of h er right sided pleural effusion. This was discussed with the patient she did not feel much improvement after her thoracentesis on 10/12 and had a significant increase in her pain. We discussed risks and benefits of repeated thoracentesis and she was not interested in repeat thoracentesis. She will follow up as an outpatient for repeat chest x-ray in 1-[address] Rivers or lisandro. Patient will require oxygen 24/10 secondary to hypoxemia caused by her squamous cell carcinoma of the lung. 82% on RA at rest. Patient seen and examined at bedside. Right rib pain, SOB the same as at home, no nausea, no vomiting, no diarrhea. She states that her rib pain is much better. She does not want to undergo radiation but would be willing to see Dr. Schroeder. She is willing to wear oxygen at home. Gave her the option of a nebulizer versus an inhaler and she was okay with sticking with her inhaler as she did not get additional relief from nebulizer. Vital signs reviewed and stable. General: non toxic, no distress, appears at stated age Derm: warm, dry Head: atraumatic, normocephalic, symmetric Eyes: EOMI, no lid lag, anicteric sclera Mouth: no lip lesion, mucus membranes moist Cardiovascular: S1S2 reg, no murmur, positive posterior tibial pulse bilateral, Lungs: Rhonchi with rales right base, no accessory muscle use Abdominal: soft, nontender to palpation, no guarding, no appreciable organomegaly Ext: no gross muscle atrophy, no edema, no contractures Neuro: CN II-XI grossly intact, no focal neuro deficits Psych: Alert, oriented, appropriate affect A total of 25 minutes of time were spent preparing this complex discharge summary . Patient Condition at Discharge: Stable Plan - Discharge Summary New Discharge Prescriptions: New Lidocaine 5% Patch [Lidoderm 5% Patch] 1 patch TOPICAL DAILY@1700 #1 box HYDROcodone/APAP 5-325MG [[place] 5-325] 1 each PO Q4HR PRN #21 tab PRN Reason: Moderate Pain Continue Methotrexate Sodium [Methotrexate] 15 mg PO TH Folic Acid 1 mg PO DAILY Cholecalciferol (Vitamin D3) [Vitamin D3] 2,000 unit PO DAILY amLODIPine [Norvasc] 5 mg PO DAILY Aspirin [Children's Aspirin] 81 mg PO DAILY Simvastatin [Zocor] 10 mg PO DAILY Celecoxib [CeleBREX] 200 mg PO BID predniSONE 5 mg PO DAILY Cetirizine HCl 10 mg PO DAILY Levothyroxine Sodium 100 mcg PO DAILY Codeine Phosphate/Guaifenesin [Guaifen-Codeine 100-10 mg/5 ml] 10 ml PO Q4H PRN PRN Reason: Cough Albuterol Inhaler [Ventolin Hfa Inhaler] 1 puff INHALATION RT-QID PRN PRN Reason: Shortness Of Breath Cyanocobalamin (Vitamin B-12) [Vitamin B-12] 1,000 mcg PO DAILY Discharge Medication List Aspirin [Children's Aspirin] 81 mg PO DAILY 09/19/17 [History] Celecoxib [CeleBREX] 200 mg PO BID 09/19/17 [History] Cholecalciferol (Vitamin D3) [Vitamin D3] 2,000 unit PO DAILY 09/19/17 [History] Folic Acid 1 mg PO DAILY 09/19/17 [History] Methotrexate Sodium [Methotrexate] 15 mg PO TH 09/19/17 [History] Simvastatin [Zocor] 10 mg PO DAILY 09/19/17 [History] amLODIPine [Norvasc] 5 mg PO DAILY 09/19/17 [History] Albuterol Inhaler [Ventolin Hfa Inhaler] 1 puff INHALATION RT-QID PRN 10/12/19 [History] Cetirizine HCl 10 mg PO DAILY 10/12/19 [History] Codeine Phosphate/Guaifenesin [Guaifen-Codeine 100-10 mg/5 ml] 10 ml PO Q4H PRN 10/12/19 [History] Cyanocobalamin (Vitamin B-12) [Vitamin B-12] 1,000 mcg PO DAILY 10/12/19 [History] Levothyroxine Sodium 100 mcg PO DAILY 10/12/19 [History] predniSONE 5 mg PO DAILY 10/12/19 [History] HYDROcodone/APAP 5-325MG [[place] 5-325] 1 each PO Q4HR PRN #21 tab 10/14/19 [Rx] Lidocaine 5% Patch [Lidoderm 5% Patch] 1 patch TOPICAL DAILY@1700 #1 box 10/14/19 [Rx] Follow up Appointment(s)/Referral(s): [facility] [NON-STAFF] - (supplies Oxygen) Murali Zhang MD [Primary Care Provider] - 10/15/19 10:30 am Terry Solo MD [STAFF PHYSICIAN] - 10/15/19 3:30 pm Patient Instructions/Handouts: Using Oxygen at Home (DC), Pleural Effusion (DC) Activity/Diet/Wound Care/Special Instructions: Activity: as tolerated Diet: regular Special Instructions: [facility] will contact you Discharge Disposition: HOME SELF-CARE
[2019-10-14 14:01] LABS: Glucose, BF Source Pleural Fluid; Glucose, Body Fluid 104 mg/dL; LDH, Body Fluid Source Pleural Fluid; Total Protein, Body Fluid 3100 mg/dL
[2019-10-14] MEDS: traMADol 50 MG TAB PO PRN (14:38)
--- NOTE | 2019-10-14 16:55 | P.CONS ---
History of Present Illness - Reason for Consult Consult date: 10/14/19 back/rib pain, dyspnea Requesting physician: Alok Lopes - Chief Complaint back pain, dyspnea - History of Present Illness The patient is a 78-year-old female with a history of a stage III squamous cell carcinoma of the right lower lung treated with chemoradiation concurrently finishing in December 2017. She subsequently underwent adjuvant immunotherapy, and has done quite well until this past August when recent imaging revealed disease progression locally within the right lower lung. The patient presented to the hospital complaining of dyspnea and right lower posterior rib cage pain. She underwent a CT angiogram on October 11, which showed the right hilar mass with some postobstructive change, a moderate right-sided effusion was also noted. The patient underwent thoracentesis in had 850 cc drained. She reports that this did not seem to significantly change or dyspnea. She states however that she is no longer having the posterior rib discomfort. She notes today however that she has had some anterior lower right rib pain. She has been on 2 L of oxygen since desaturating to the 80s. The patient reports that in September she started Opdivo for her disease progression. She is planning to follow-up as an outpatient with medical oncology on October 23, but she reports she is unlikely to continue therapy. Review of Systems Constitutional: Denies chills, Denies fever Eyes: denies blurred vision Ears, nose, mouth and throat: Denies dysphagia, Denies headache Cardiovascular: Reports chest pain Respiratory: Reports cough, Reports dyspnea, Reports pain on inspiration Gastrointestinal: Reports loss of appetite, Denies belching Genitourinary: Denies flank pain Musculoskeletal: Denies frequent falls Integumentary: Denies rash Neurological: Denies aphasia, Denies ataxia, Denies confusion Psychiatric: Denies anxiety, Denies confusion Past Medical History Past Medical History: Cancer, Hyperlipidemia, Hypertension, Rheumatoid Arthritis (RA), Skin Disorder, Thyroid Disorder Additional Past Medical History / Comment(s): melanoma - skin lesion on rt cheek, Stage III lung cancer Squamous Cell, osteoprosis History of Any Multi-Drug Resistant Organisms: None Reported Past Surgical History: Back Surgery, Orthopedic Surgery Additional Past Surgical History / Comment(s): skin lesion removed, lt knee replacement, Bronch with biopsy, b/l knee arthroscopy, b/l cataract, right shoulder surgery for rotator cuff repair, bakers cyst rihgt knee Past Anesthesia/Blood Transfusion Reactions: No Reported Reaction Additional Past Anesthesia/Blood Transfusion Reaction / Comm: no bld transfusion Past Psychological History: No Psychological Hx Reported Smoking Status: Former smoker Past Alcohol Use History: None Reported Past Drug Use History: None Reported Additional Drug Use History / Comment(s): No cane or walker. No oxygen. Lives with - Past Family History Son(s) Family Medical History: Cancer Additional Family Medical History / Comment(s): leukemia Daughter(s) Family Medical History: Cancer Additional Family Medical History / Comment(s): breast Mother Family Medical History: Cancer Additional Family Medical History / Comment(s): lymphoma Medications and Allergies Home Medications Medication Instructions Recorded Confirmed Type Aspirin [Children's Aspirin] 81 mg PO DAILY 09/19/17 10/12/19 History Celecoxib [CeleBREX] 200 mg PO BID 09/19/17 10/12/19 History Cholecalciferol (Vitamin D3) 2,000 unit PO DAILY 09/19/17 10/12/19 History [Vitamin D3] Folic Acid 1 mg PO DAILY 09/19/17 10/12/19 History Methotrexate Sodium [Methotrexate] 15 mg PO TH 09/19/17 10/12/19 History Simvastatin [Zocor] 10 mg PO DAILY 09/19/17 10/12/19 History amLODIPine [Norvasc] 5 mg PO DAILY 09/19/17 10/12/19 History Albuterol Inhaler [Ventolin Hfa 1 puff INHALATION RT-QID PRN 10/12/19 10/12/19 History Inhaler] Cetirizine HCl 10 mg PO DAILY 10/12/19 10/12/19 History Codeine Phosphate/Guaifenesin 10 ml PO Q4H PRN 10/12/19 10/12/19 History [Guaifen-Codeine 100-10 mg/5 ml] Cyanocobalamin (Vitamin B-12) 1,000 mcg PO DAILY 10/12/19 10/12/19 History [Vitamin B-12] Levothyroxine Sodium 100 mcg PO DAILY 10/12/19 10/12/19 History predniSONE 5 mg PO DAILY 10/12/19 10/12/19 History HYDROcodone/APAP 5-325MG [[place] 1 each PO Q4HR PRN #21 tab 10/14/19 Rx 5-325] Lidocaine 5% Patch [Lidoderm 5% 1 patch TOPICAL DAILY@1700 #1 box 10/14/19 Rx Patch] Allergies Allergy/AdvReac Type Severity Reaction Status Date / Time No Known Allergies Allergy Verified 10/12/19 14:05 Physical Exam Vitals: Vital Signs Temp Pulse Pulse Resp BP BP Pulse Ox 10/14/19 12:18 100 10/14/19 12:09 101 H 10/14/19 08:57 98.1 F 104 H 16 135/78 94 L 10/14/19 07:30 96 10/14/19 07:17 92 10/14/19 00:00 98.0 F 98 18 128/68 90 L 10/13/19 19:32 88 10/13/19 19:20 88 10/13/19 19:15 98.0 F 91 18 101/60 91 L Intake and Output 10/14/19 10/14/19 10/14/19 06:59 14:59 22:59 Other: Voiding Method Toilet Toilet # Voids 2 1 - Constitutional General appearance: no acute distress - EENT Eyes: EOMI, PERRLA ENT: hearing grossly normal - Neck Neck: no lymphadenopathy - Respiratory Respiratory: right: diminished, left: CTA - Cardiovascular Rhythm: regular - Gastrointestinal General gastrointestinal: no distended, no tenderness - Integumentary Integumentary: no cellulitis, no flushed - Neurologic Neurologic: CNII-XII intact - Musculoskeletal Musculoskeletal: strength equal bilaterally - Psychiatric Psychiatric: A&O x's 3, appropriate affect, intact judgment & insight Results CBC & Chem 7: 10/13/19 05:33 10/13/19 05:33 Labs: Abnormal Lab Results - Last 24 Hours (Table) 10/14/19 Range/Units 04:31 Procalcitonin 0.12 H (0.02-0.09) ng/mL Microbiology - Last 24 Hours (Table) 10/12/19 14:21 Blood Culture - Preliminary Blood No Growth after 48 hours 10/13/19 12:30 Gram Stain - Preliminary Pleural Fluid Body Fluid Culture - Preliminary CT scan - chest: report reviewed, image reviewed Assessment and Plan Plan: The patient is a 78-year-old female with a history of a stage III squamous cell carcinoma of the right lower lung [facility]. She subsequently underwent adjuvant immunotherapy, and has done quite well until this past August when recent imaging revealed disease progression locally within the right lower lung. 1. Rib pain/Dyspnea: The patient understands these symptoms are likely secondary to progression of right lower lung cancer. She has recently started on second line immunotherapy since being diagnosed with local progression of disease. Unfortunately, the patient reports she has felt quite poorly since initiating this therapy. She has stated her desire to not undergo any further treatments. She will follow-up with medical oncology as an outpatient to address this. I did explain to the patient that as her disease is adjacent to the chest wall, there may be a role for palliative radiotherapy. The patient was not interested in this treatment at this time, and therefore no further follow-up will be arranged. The patient was informed to call our clinic if she has any future need. Time with Patient: Greater than 30
[2019-10-17] MEDS ORDERED: METHOTREXATE SODIUM 2.5 MG TAB PO SCH (09:00)
== END 2019-10-14 15:42 | disposition home or self-care (01) ==
LOC: EC 11:43 → 1SOBS 14:42
PROVIDERS: ADMIT Internal Medicine; ATTEND Internal Medicine
DX: J90 Pleural effusion, not elsewhere classified (principal); C34.31 Malignant neoplasm of lower lobe, right bronchus or lung; G89.3 Neoplasm related pain (acute) (chronic); J96.01 Acute respiratory failure with hypoxia; R00.0 Tachycardia, unspecified; I10 Essential (primary) hypertension; E78.5 Hyperlipidemia, unspecified; R79.1 Abnormal coagulation profile; J98.11 Atelectasis; M06.9 Rheumatoid arthritis, unspecified; E03.9 Hypothyroidism, unspecified; Z03.818 Encounter for observation for suspected exposure to other biological agents ruled out; Z79.899 Other long term (current) drug therapy; Z79.82 Long term (current) use of aspirin; Z79.1 Long term (current) use of non-steroidal anti-inflammatories (NSAID); Z79.890 Hormone replacement therapy; Z79.52 Long term (current) use of systemic steroids; Z85.820 Personal history of malignant melanoma of skin; Z98.890 Other specified postprocedural states; Z96.652 Presence of left artificial knee joint; Z87.891 Personal history of nicotine dependence; Z66 Do not resuscitate; Z87.39 Personal history of other diseases of the musculoskeletal system and connective tissue; Z92.21 Personal history of antineoplastic chemotherapy; Z92.3 Personal history of irradiation; Z80.6 Family history of leukemia; Z80.3 Family history of malignant neoplasm of breast; Z80.7 Family history of other malignant neoplasms of lymphoid, hematopoietic and related tissues
CPT/HCPCS: 96361 ×2; 96367; 96365; 99285; 36415; 94640 ×5; 93005; 85379; 88108; 88305; 83880; 80053; 80048; 84443; 82533; 89050; 83605; 83615 ×2; 83735; 84100; 84155; 84484; 85025; 85027; 85610; 85730; 88342; 87040; 88341; 87070; 87205; 82945; 84157; 84145; 71045; 71046 ×2; 32555; 76604; 71275; G0378 ×3; U0003; J3370; J0692; Q9967

== ENCOUNTER 2020-08-15 14:15 | Inpatient (IN) | payer MEDICAID, MEDICARE, OTHER ==
[2020-08-15] MEDS ORDERED: SODIUM CHLORIDE 0.9% 500 ML 500 ML IV STA (15:12)
[2020-08-15 15:58] LABS: Basophils % (A) 0 %; Eosinophils # (A) 0.2 k/uL (0-0.7); Eosinophils % (A) 2 %; HCT 42.4 % (34.0-46.0); HGB 14.1 gm/dL (11.4-16.0); Lymphocytes # (A) 0.6 k/uL (1.0-4.8); Lymphocytes % (A) 5 %; MCH 30.4 pg (25.0-35.0); MCHC 33.1 g/dL (31.0-37.0); MCV 91.6 fL (80.0-100.0); Mean Platelet Volume 7.3; Monocytes # (A) 0.5 k/uL (0-1.0); Monocytes % (A) 4 %; Neutrophils # (A) 11.1 k/uL (1.3-7.7); Neutrophils % (A) 89 %; Platelet Count 269 k/uL (150-450); RBC 4.63 m/uL (3.80-5.40); RDW 15.3 % (11.5-15.5); WBC 12.5 k/uL (3.8-10.6)
[2020-08-15 16:06] LABS: ALT 40 U/L (4-34); AST 53 U/L (14-36); African American GFR (CKD) >90 (>60 ml/min/1.73 sqM); Alkaline Phosphatase 144 U/L (38-126); Anion Gap 4 mmol/L; Blood Urea Nitrogen 24 mg/dL (7-17); Calcium 11.8 mg/dL (8.4-10.2); Carbon Dioxide 31 mmol/L (22-30); Chloride 100 mmol/L (98-107); Glucose 96 mg/dL (74-99); Non-African American GFR(CKD) 83 (>60 ml/min/1.73 sqM); Potassium 4.3 mmol/L (3.5-5.1); Sodium 135 mmol/L (137-145); Total Protein 5.6 g/dL (6.3-8.2)
--- NOTE | 2020-08-15 17:07 | CT ---
EXAMINATION TYPE: CT thor lumbar spine wo con DATE OF EXAM: 08/15/2020 COMPARISON: None HISTORY: Pain, possible compression fractures. Pt recently fell. Hx lung ca CT DLP: 797.6 mGycm Automated exposure control for dose reduction was used. Images obtained from the level of T1-S1 vertebra with no contrast. There is 25% compression fracture of L1 vertebral body. There is 30% wedging of T8 vertebra. There is similar wedging of T6. There is osteopenia. There is no lumbar paraspinal mass. The posterior elemen ts are intact. Sacroiliac joints are intact. IMPRESSION: Multiple compression fractures. Fractures at T6 and T8 are not changed compared to chest CT scan of . Fracture at L1 is new compared to old exam. No obvious focal bone destruction.
--- NOTE | 2020-08-15 18:24 | ED ---
Back Pain HPI - General Chief Complaint: Back Pain/Injury Stated Complaint: Back pain Time Seen by Provider: 08/15/20 14:46 Source: patient, family () Limitations: no limitations - History of Present Illness Initial Comments: 79-year-old white female patient presents to the emergency room with her complaining of lower back pain. Patient states she was tucking in the sheets and felt a crack in her back. Patient states fell backward onto her back and needed help and assistance back into the bed by the hospice nurse. Patient has not had pain relief and has been taking her prescribed morphine with no relief. at bedside is concerned for fracture and possible surgical repair to relieve pain. Patient alert and oriented 4, slow to respond due to 2 doses of morphine at home prior to arrival. Dry sticky cracked mucous membranes making it difficult to communicate. states patient has lung cancer and has been placed on hospice care for past 10 months. MD Complaint: back pain, fall -: days(s) (2) Place: home Severity: severe Severity scale (1-10): 10 Quality: sharp Consistency: constant Improves With: immobilization Worsens With: movement, sitting upright Context: fall Associated Symptoms: weakness Treatments Prior to Arrival: other (Morphine) - Related Data Home Medications Medication Instructions Recorded Confirmed Aspirin [Children's Aspirin] 81 mg PO DAILY 09/19/17 10/12/19 Celecoxib [CeleBREX] 200 mg PO BID 09/19/17 10/12/19 Cholecalciferol (Vitamin D3) 2,000 unit PO DAILY 09/19/17 10/12/19 [Vitamin D3] Folic Acid 1 mg PO DAILY 09/19/17 10/12/19 Simvastatin [Zocor] 10 mg PO DAILY 09/19/17 10/12/19 amLODIPine [Norvasc] 5 mg PO DAILY 09/19/17 10/12/19 metHOTREXate sodium [Methotrexate] 15 mg PO TH 09/19/17 10/12/19 Albuterol Inhaler [Ventolin Hfa 1 puff INHALATION RT-QID PRN 10/12/19 10/12/19 Inhaler] Cetirizine HCl 10 mg PO DAILY 10/12/19 10/12/19 Codeine Phosphate/Guaifenesin 10 ml PO Q4H PRN 10/12/19 10/12/19 [Guaifen-Codeine 100-10 mg/5 ml] Cyanocobalamin (Vitamin B-12) 1,000 mcg PO DAILY 10/12/19 10/12/19 [Vitamin B-12] Levothyroxine Sodium 100 mcg PO DAILY 10/12/19 10/12/19 predniSONE 5 mg PO DAILY 10/12/19 10/12/19 Previous Rx's Medication Instructions Recorded HYDROcodone/APAP 5-325MG [Gallagher 1 each PO Q4HR PRN #21 tab 10/14/19 5-325] Lidocaine 5% Patch [Lidoderm 5% 1 patch TOPICAL DAILY@1700 #1 box 10/14/19 Patch] Allergies Allergy/AdvReac Type Severity Reaction Status Date / Time No Known Allergies Allergy Verified 08/15/20 14:25 Review of Systems ROS Statement: Those systems with pertinent positive or pertinent negative responses have been documented in the HPI. ROS Other: All systems not noted in ROS Statement are negative. Past Medical History Past Medical History: Cancer, Hyperlipidemia, Hypertension, Rheumatoid Arthritis (RA), Skin Disorder, Thyroid Disorder Additional Past Medical History / Comment(s): melanoma - skin lesion on rt cheek, Stage III lung cancer Squamous Cell, osteoprosis History of Any Multi-Drug Resistant Organisms: None Reported Past Surgical History: Back Surgery, Orthopedic Surgery Additional Past Surgical History / Comment(s): skin lesion removed, lt knee replacement, Bronch with biopsy, b/l knee arthroscopy, b/l cataract, right shoulder surgery for rotator cuff repair, bakers cyst rihgt knee Past Anesthesia/Blood Transfusion Reactions: No Reported Reaction Additional Past Anesthesia/Blood Transfusion Reaction / Comment(s): no bld transfusion Past Psychological History: No Psychological Hx Reported Past Alcohol Use History: None Reported Past Drug Use History: None Reported - Past Family History Son(s) Family Medical History: Cancer Additional Family Medical History / Comment(s): leukemia Daughter(s) Family Medical History: Cancer Additional Family Medical History / Comment(s): breast Mother Family Medical History: Cancer Additional Family Medical History / Comment(s): lymphoma General Exam Limitations: no limitations General appearance: alert, in no apparent distress, appears intoxicated Head exam: Present: atraumatic, normocephalic, normal inspection Eye exam: Present: normal appearance, PERRL, EOMI. Absent: scleral icterus, conjunctival injection, periorbital swelling ENT exam: Present: normal exam, mucous membranes dry (Cracked) Neck exam: Present: normal inspection, full ROM. Absent: tenderness, meningismus, lymphadenopathy Respiratory exam: Present: normal lung sounds bilaterally. Absent: respiratory distress, wheezes, rales, rhonchi, stridor, chest wall tenderness, accessory muscle use Cardiovascular Exam: Present: regular rate, normal rhythm, normal heart sounds. Absent: systolic murmur, diastolic murmur, rubs, gallop, clicks GI/Abdominal exam: Present: soft, normal bowel sounds. Absent: distended, tenderness, guarding, rebound, rigid Rectal exam: Present: deferred Extremities exam: Present: normal inspection, full ROM, normal capillary refill. Absent: tenderness, pedal edema, joint swelling, calf tenderness Back exam: Present: normal inspection, vertebral tenderness. Absent: full ROM, tenderness Neurological exam: Present: alert, oriented X3 Psychiatric exam: Present: normal affect, normal mood Skin exam: Present: warm, dry, intact, normal color. Absent: rash, diaphoretic, erythema, petechiae Course Vital Signs 08/15/20 08/15/20 08/15/20 14:21 15:49 17:05 Temperature 98.0 F Pulse Rate 100 98 96 Respiratory 18 16 18 Rate Blood Pressure 127/79 135/76 126/76 O2 Sat by Pulse 95 98 98 Oximetry 08/15/20 18:48 Temperature Pulse Rate 97 Respiratory 18 Rate Blood Pressure 140/81 O2 Sat by Pulse 99 Oximetry Medical Decision Making - Medical Decision Making CT shows a new L1 fracture, with old compression fractures T6 & T8 as seen previously on 10/12/2019. Patient is in the care of [facility]. Spoke with Tommy RECINOS from [facility] regarding admission to hospital for pain control and he will come to the ER to write orders. Patient to be admitted to Dr. Bynum, however hospice will write orders with an intent to get patient discharged home with pain control and possibly a pain pump. Case discussed with . - Lab Data Result diagrams: 08/15/20 15:41 08/15/20 15:41 Lab Results 08/15/20 08/15/20 Range/Units 15:41 15:41 WBC 12.5 H (3.8-10.6) k/uL RBC 4.63 (3.80-5.40) m/uL Hgb 14.1 (11.4-16.0) gm/dL Hct 42.4 (34.0-46.0) % MCV 91.6 (80.0-100.0) fL MCH 30.4 (25.0-35.0) pg MCHC 33.1 (31.0-37.0) g/dL RDW 15.3 (11.5-15.5) % Plt Count 269 (150-450) k/uL MPV 7.3 Neutrophils % 89 % Lymphocytes % 5 % Monocytes % 4 % Eosinophils % 2 % Basophils % 0 % Neutrophils # 11.1 H (1.3-7.7) k/uL Lymphocytes # 0.6 L (1.0-4.8) k/uL Monocytes # 0.5 (0-1.0) k/uL Eosinophils # 0.2 (0-0.7) k/uL Basophils # 0.0 (0-0.2) k/uL Sodium 135 L (137-145) mmol/L Potassium 4.3 (3.5-5.1) mmol/L Chloride 100 (98-107) mmol/L Carbon Dioxide 31 H (22-30) mmol/L Anion Gap 4 mmol/L BUN 24 H (7-17) mg/dL Creatinine 0.69 (0.52-1.04) mg/dL Est GFR (CKD-EPI)AfAm >90 (>60 ml/min/1.73 sqM) Est GFR (CKD-EPI)NonAf 83 (>60 ml/min/1.73 sqM) Glucose 96 (74-99) mg/dL Calcium 11.8 H (8.4-10.2) mg/dL Total Bilirubin 1.0 (0.2-1.3) mg/dL AST 53 H (14-36) U/L ALT 40 H (4-34) U/L Alkaline Phosphatase 144 H (38-126) U/L Total Protein 5.6 L (6.3-8.2) g/dL Albumin 3.0 L (3.5-5.0) g/dL Disposition Clinical Impression: Fracture of lumbar spine, Hospice care Clinical Impression: (Ruled Out): Fracture of lumbar spine with cord lesion Disposition: ADMITTED IP TO THIS [facility] Condition: Fair Referrals: None,Stated [Primary Care Provider] - 1-2 days Decision Date: 08/15/20 Decision Time: 19:09
[2020-08-15] MEDS ORDERED: NALOXONE 0.4 MG/ML 1 ML VIAL IV PRN (19:10)
[2020-08-15] MEDS ORDERED: ZOLPIDEM 5 MG TAB PO PRN (20:33)
[2020-08-15] MEDS ORDERED: ONDANSETRON 4 MG/2 ML VIAL IVP PRN (20:33)
[2020-08-15] MEDS ORDERED: LORazepam 2 MG/ML INJ IV PRN (20:33)
[2020-08-15] MEDS ORDERED: ATROPINE OPHTH SOLN 1% 5ML BTL SUBLINGUAL PRN (20:33)
[2020-08-15] MEDS ORDERED: DRY MOUTH SPRAY 44.3 SPRAY/44.3 ML SPRAY MUCOUS MEM PRN (20:33)
[2020-08-15] MEDS ORDERED: HALOPERIDOL LACTATE 5 MG/ML 1 ML VIAL IM PRN (20:33)
[2020-08-15] MEDS: MORPHINE SULFATE 2 MG/ML SYRINGE IVP PRN (23:23)
--- NOTE | 2020-08-16 01:40 | P.HPIM ---
History of Present Illness H&P Date: 08/15/20 Chief Complaint: Back pain 79-year-old female with lung cancer and bone metastases she's been on hospice for 10 months Patient comes in due to uncontrollable back pain despite taking her by mouth morphine. Her hospice nurse suggested that she goes to the hospital for evalu ation and IV pain control. Problem started when she was fixing her bed and heard a crack in her back and fell back words, since then she's been having severe pain in her back she is unable to walk around she is unable to move taking deep breaths hurts. She denies any focal neuro deficits in her lower extremities. Patient comes in today for evaluation of her lower back pain and treatment. Imaging showed new L1 fracture patient also has old T6 and T8 fractures Patient otherwise denies any focal neuro deficits, fevers or chills, chest pain or trouble breathing, abdominal pain nausea vomiting. Patient has poor by mouth intake Review of Systems Pertinent positives as noted in HPI. All other systems were reviewed and are negative Past Medical History Past Medical History: Cancer, Hyperlipidemia, Hypertension, Rheumatoid Arthritis (RA), Skin Disorder, Thyroid Disorder Additional Past Medical History / Comment(s): melanoma - skin lesion on rt cheek, Stage III lung cancer Squamous Cell, osteoprosis History of Any Multi-Drug Resistant Organisms: None Reported Past Surgical History: Back Surgery, Orthopedic Surgery Additional Past Surgical History / Comment(s): skin lesion removed, lt knee replacement, Bronch with biopsy, b/l knee arthroscopy, b/l cataract, right shoulder surgery for rotator cuff repair, bakers cyst rihgt knee Past Anesthesia/Blood Transfusion Reactions: No Reported Reaction Additional Past Anesthesia/Blood Transfusion Reaction / Comment(s): no bld transfusion Past Psychological History: No Psychological Hx Reported Past Alcohol Use History: None Reported Past Drug Use History: None Reported - Past Family History Son(s) Family Medical History: Cancer Additional Family Medical History / Comment(s): leukemia Daughter(s) Family Medical History: Cancer Additional Family Medical History / Comment(s): breast Mother Family Medical History: Cancer Additional Family Medical History / Comment(s): lymphoma Medications and Allergies Home Medications Medication Instructions Recorded Confirmed Type Aspirin [Children's Aspirin] 81 mg PO DAILY 09/19/17 08/15/20 History Celecoxib [CeleBREX] 200 mg PO BID 09/19/17 08/15/20 History Simvastatin [Zocor] 10 mg PO HS 09/19/17 08/15/20 History amLODIPine [Norvasc] 5 mg PO DAILY 09/19/17 08/15/20 History metHOTREXate sodium [Methotrexate] 15 mg PO TH 09/19/17 08/15/20 History Albuterol Inhaler [Ventolin Hfa 1 puff INHALATION RT-QID PRN 10/12/19 08/15/20 History Inhaler] Codeine Phosphate/Guaifenesin 10 ml PO Q4H PRN 10/12/19 08/15/20 History [Guaifen-Codeine 100-10 mg/5 ml] Levothyroxine Sodium 100 mcg PO DAILY 10/12/19 08/15/20 History predniSONE 10 mg PO DAILY 10/12/19 08/15/20 History Cyclobenzaprine [Flexeril] 10 mg PO Q8H PRN 08/15/20 08/15/20 History Docusate [Colace] 100 mg PO DAILY PRN 08/15/20 08/15/20 History Ibuprofen [Motrin] 400 mg PO DAILY 08/15/20 08/15/20 History Ipratropium-Albuterol Nebulize 3 ml INHALATION RT-QID PRN 08/15/20 08/15/20 History [Duoneb 0.5 mg-3 mg/3 ml Soln] LORazepam [Ativan] 0.5 mg PO Q4H PRN 08/15/20 08/15/20 History Lidocaine 5% Oint [Xylocaine 5% 1 applic TOPICAL DAILY 08/15/20 08/15/20 History Oint] MORPHINE ORAL RONDA CONC 20mg/mL 10 mg PO Q4HR PRN 08/15/20 08/15/20 History [Roxanol Oral Soln Conc 20MG/ML] Morphine Sulfate ER [Ms Contin] 30 mg PO Q12HR 08/15/20 08/15/20 History Ondansetron [Zofran] 4 mg PO Q6H PRN 08/15/20 08/15/20 History Polyethylene Glycol 3350 [Miralax] 17 gm PO DAILY PRN 08/15/20 08/15/20 History Sennosides [Senna] 8.6 mg PO BID PRN 08/15/20 08/15/20 History dronabinoL [Marinol] 2.5 mg PO AC-BID 08/15/20 08/15/20 History guaiFENesin [Mucinex] 600 mg PO DAILY PRN 08/15/20 08/15/20 History Allergies Allergy/AdvReac Type Severity Reaction Status Date / Time No Known Allergies Allergy Verified 08/15/20 19:52 Physical Exam Vitals: Vital Signs Temp Pulse Resp BP Pulse Ox 08/15/20 18:48 97 18 140/81 99 08/15/20 17:05 96 18 126/76 98 08/15/20 15:49 98 16 135/76 98 08/15/20 14:21 98.0 F 100 18 127/79 95 Intake and Output 08/15/20 08/15/20 08/15/20 06:59 14:59 22:59 Other: Weight 101 kg Constitutional: No acute distress, patient laying down in bed unable to move due to severe pain Eyes: Anicteric sclerae, moist conjunctiva, Pupils equal round reactive to light ENMT: NC/AT Oropharynx clear dry mucous membranes, no erythema, or exudates Neck: Supple, FROM, no masses, or JVD No carotid bruits No thyromegaly Lungs: Diminished breath sounds with poor effort Clear to percussion Normal respiratory effort, no accessory muscle use Cardiovascular: Heart regular in rate and rhythm, No murmurs, gallops, or rubs No peripheral edema Abdominal: Soft Nontender, no guarding, rebound or rigidity Abdomen moving with respiration Normoactive bowel sounds No hepatomegaly, No splenomegaly No palpable mass No abdominal wall hernia noted Skin: Normal temperature, tone, texture, turgor RN reported erythema over her bottom no open wounds Extremities: No digital cyanosis No clubbing Pedal pulses intact and symmetrical Radial pulses intact and symmetrical No calf tenderness Psychiatric: Alert and oriented to person, place and time Appropriate affect fair judgement Neuro strength exam as patient unable to move any movement causes severe pain even taking a deep breath Sensation to light touch grossly present throughout Cranial nerves II-XII grossly intact No focal sensory deficits Lymphatics: no palpable cervical or supraclavicular , or inguinal lymph nodes Results CBC & Chem 7: 08/15/20 15:41 08/15/20 15:41 Labs: Abnormal Lab Results - Last 24 Hours (Table) 08/15/20 08/15/20 Range/Units 15:41 15:41 WBC 12.5 H (3.8-10.6) k/uL Neutrophils # 11.1 H (1.3-7.7) k/uL Lymphocytes # 0.6 L (1.0-4.8) k/uL Sodium 135 L (137-145) mmol/L Carbon Dioxide 31 H (22-30) mmol/L BUN 24 H (7-17) mg/dL Calcium 11.8 H (8.4-10.2) mg/dL AST 53 H (14-36) U/L ALT 40 H (4-34) U/L Alkaline Phosphatase 144 H (38-126) U/L Total Protein 5.6 L (6.3-8.2) g/dL Albumin 3.0 L (3.5-5.0) g/dL Assessment and Plan Assessment: Severe intractable lower back pain secondary to L1 fracture Pain control with morphine Consultations orthopedics to evaluate for possible kyphoplasty Lung cancer with metastases to the bone Continue with inpatient hospice care Patient is no code Anticipated length of stay length than 2 midnights, anticipated discharge to home with hospice care
[2020-08-16] MEDS: MORPHINE SULFATE 2 MG/ML SYRINGE IVP PRN ×3 (08:28→17:29)
--- NOTE | 2020-08-16 12:15 | P.CNOR ---
History of Present Illness - HPI Consult date: 08/16/20 History of present illness: This is an 79-year-old female who is admitted for L1 compression fracture. Patient states that she recently had a fall and developed severe pain in her back. Patient states that her took her to the emergency room for evaluation where imaging revealed a new L1 compression fracture along with old T6 and T8 fractures. Patient is seen and evaluated at bedside today. Patient states that her pain is well controlled with IV morphine. Patient states that her pain does increase if she tries to get out of bed. Patient denies any fever/chills, numbness, weakness, tingling, change in bowel or bladder function or any saddle anesthesia. Patient's past medical history is significant for lung cancer with bone metastases and she is on hospice for this. Review of Systems See HPI. Past Medical History Past Medical History: Cancer, Hyperlipidemia, Hypertension, Rheumatoid Arthritis (RA), Skin Disorder, Thyroid Disorder Additional Past Medical History / Comment(s): melanoma - skin lesion on rt cheek, Stage III lung cancer Squamous Cell, osteoprosis History of Any Multi-Drug Resistant Organisms: None Reported Past Surgical History: Back Surgery, Orthopedic Surgery Additional Past Surgical History / Comment(s): skin lesion removed, lt knee replacement, Bronch with biopsy, b/l knee arthroscopy, b/l cataract, right shoulder surgery for rotator cuff repair, bakers cyst rihgt knee Past Anesthesia/Blood Transfusion Reactions: No Reported Reaction Additional Past Anesthesia/Blood Transfusion Reaction / Comm: no bld transfusion Past Psychological History: No Psychological Hx Reported Past Alcohol Use History: None Reported Past Drug Use History: None Reported - Past Family History Son(s) Family Medical History: Cancer Additional Family Medical History / Comment(s): leukemia Daughter(s) Family Medical History: Cancer Additional Family Medical History / Comment(s): breast Mother Family Medical History: Cancer Additional Family Medical History / Comment(s): lymphoma Medications and Allergies Home Medications Medication Instructions Recorded Confirmed Type Aspirin [Children's Aspirin] 81 mg PO DAILY 09/19/17 08/15/20 History Celecoxib [CeleBREX] 200 mg PO BID 09/19/17 08/15/20 History Simvastatin [Zocor] 10 mg PO HS 09/19/17 08/15/20 History amLODIPine [Norvasc] 5 mg PO DAILY 09/19/17 08/15/20 History metHOTREXate sodium [Methotrexate] 15 mg PO TH 09/19/17 08/15/20 History Albuterol Inhaler [Ventolin Hfa 1 puff INHALATION RT-QID PRN 10/12/19 08/15/20 History Inhaler] Codeine Phosphate/Guaifenesin 10 ml PO Q4H PRN 10/12/19 08/15/20 History [Guaifen-Codeine 100-10 mg/5 ml] Levothyroxine Sodium 100 mcg PO DAILY 10/12/19 08/15/20 History predniSONE 10 mg PO DAILY 10/12/19 08/15/20 History Cyclobenzaprine [Flexeril] 10 mg PO Q8H PRN 08/15/20 08/15/20 History Docusate [Colace] 100 mg PO DAILY PRN 08/15/20 08/15/20 History Ibuprofen [Motrin] 400 mg PO DAILY 08/15/20 08/15/20 History Ipratropium-Albuterol Nebulize 3 ml INHALATION RT-QID PRN 08/15/20 08/15/20 History [Duoneb 0.5 mg-3 mg/3 ml Soln] LORazepam [Ativan] 0.5 mg PO Q4H PRN 08/15/20 08/15/20 History Lidocaine 5% Oint [Xylocaine 5% 1 applic TOPICAL DAILY 08/15/20 08/15/20 History Oint] MORPHINE ORAL RONDA CONC 20mg/mL 10 mg PO Q4HR PRN 08/15/20 08/15/20 History [Roxanol Oral Soln Conc 20MG/ML] Morphine Sulfate ER [Ms Contin] 30 mg PO Q12HR 08/15/20 08/15/20 History Ondansetron [Zofran] 4 mg PO Q6H PRN 08/15/20 08/15/20 History Polyethylene Glycol 3350 [Miralax] 17 gm PO DAILY PRN 08/15/20 08/15/20 History Sennosides [Senna] 8.6 mg PO BID PRN 08/15/20 08/15/20 History dronabinoL [Marinol] 2.5 mg PO AC-BID 08/15/20 08/15/20 History guaiFENesin [Mucinex] 600 mg PO DAILY PRN 08/15/20 08/15/20 History Allergies Allergy/AdvReac Type Severity Reaction Status Date / Time No Known Allergies Allergy Verified 08/15/20 19:52 Physical Examination On exam patient is resting comfortably in bed in no acute distress. Patient is alert and oriented 3. Patient has full range of motion of bilateral upper and lower extremities. Sensation intact. Neurovascular status and circulatory status are intact. Results CT report of the thoracic and lumbar spine dated 08/15/2020 is reviewed and reveals multiple compression fractures. Fractures at T6 and T8 not changed compared to chest CT scan of 10/12/2019. Fracture at L1 is new compared with exam. No obvious focal bone destruction. - Labs Labs: Abnormal Lab Results - Last 24 Hours (Table) 08/15/20 08/15/20 Range/Units 15:41 15:41 WBC 12.5 H (3.8-10.6) k/uL Neutrophils # 11.1 H (1.3-7.7) k/uL Lymphocytes # 0.6 L (1.0-4.8) k/uL Sodium 135 L (137-145) mmol/L Carbon Dioxide 31 H (22-30) mmol/L BUN 24 H (7-17) mg/dL Calcium 11.8 H (8.4-10.2) mg/dL AST 53 H (14-36) U/L ALT 40 H (4-34) U/L Alkaline Phosphatase 144 H (38-126) U/L Total Protein 5.6 L (6.3-8.2) g/dL Albumin 3.0 L (3.5-5.0) g/dL H & H 08/15/20 Range/Units 15:41 Hgb 14.1 (11.4-16.0) gm/dL Hct 42.4 (34.0-46.0) % Result Diagrams: 08/15/20 15:41 08/15/20 15:41 Assessment and Plan (1) Compression fx, lumbar spine Current Visit: Yes Status: Acute Code(s): S32.000A - WEDGE COMPRESSION FRACTURE OF UNSP LUMBAR VERTEBRA, INIT SNOMED Code(s): 346684841 Plan: 1. Continue pain control. Patient states that her pain is well controlled today. 2. TLSO brace is ordered for the patient. Brace is to be worn when the patient is out of bed. Brace may be removed when the patient is lying flat. 3. We will continue to follow the patient.
[2020-08-16] MEDS ORDERED: guaiFENesin 600 MG TABLET.ER PO PRN (13:31)
[2020-08-16] MEDS ORDERED: ALBUTEROL NEBULIZED 2.5 MG/3 ML INHALATION PRN (13:31)
[2020-08-16] MEDS ORDERED: polyethylene glycoL 3350 17 GM POWD.PACK PO PRN (13:31)
[2020-08-16] MEDS ORDERED: SENNOSIDES 8.6 MG TAB PO PRN (13:31)
[2020-08-16] MEDS: LIDOCAINE 2% GEL 30 ML TUBE TOPICAL SCH (16:44)
[2020-08-16] MEDS: LEVOTHYROXINE 100 MCG TAB PO SCH (17:03)
[2020-08-16] MEDS: predniSONE 10 MG TAB PO SCH (17:03)
[2020-08-16] MEDS: DRY MOUTH SPRAY 44.3 SPRAY/44.3 ML SPRAY MUCOUS MEM SCH ×2 (17:04→21:44)
--- NOTE | 2020-08-16 18:24 | P.PN ---
Subjective Progress Note Date: 08/16/20 Principal diagnosis: intractable back pain Patient is an 79-year-old female with known lung cancer with bone metastases on hospice for the last 10 months who presented to the ER at the direction of her hospice nurse secondary to intractable back pain that has not been controlled by oral morphine. The patient underwent a CT thoracic and lumbar spine which showed an L1 compression fracture that was new as well as old T8 and T6 fractures. She was admitted for pain control to hospice. She was seen by orthopedic surgery who ordered a TLSO brace when out of bed. She is noted to have an elevated white blood cell count which was felt to be secondary to her chronic prednisone use. She was started on IV morphine. Patient seen and examined at bedside with family present. She complains of pain that is bad whenever she moves or even takes a deep breath. She feels as though she has pain every time she is not sleeping. She wishes she could just fall asleep and be pain free. She is not afraid of but does not want to continue living in so much agony and pain. seems respectful of these wishes, son seems concerned that hospice made a mistake and ordering Ativan and Flexeril for the patient and she was sleeping most of the day on and Monday and appeared confused and lethargic. We had a lane discussion that it is likely that her disease process with cancerous to the point that she will either be sleeping or in excruciating pain. Patient would rather be sleeping then have intractable pain. We discussed that she may need initiation of a morphine drip to control her pain into either of the levels. Son appeared very upset and tearful at knowing this level of disease for his mother. Family was very focused on what food she could eat. I explained to them that they could bring boosted to the hospital they wished that we only carry Ensure. I also discussed with them the possibility of a Magic cup. They were concerned with her difficulty swallowing. I discussed with the that it could be due to her enlarged lymph node that was known in the neck area, as well as her. Dry mucous membranes which will try using mouth coat. General: [Ill appearing, mild distress secondary to pain, chronic facial grimacing, frail, cachectic, appears at stated age, temporal wasting, buccal fat wasting Derm: warm, dry Head: atraumatic, normocephalic, symmetric Eyes: EOMI, no lid lag, anicteric sclera Mouth: no lip lesion, mucus membranes dry, no thrush Cardiovascular: S1S2 reg, no murmur, positive posterior tibial pulse bilateral, Lungs: CTA bilateral, no rhonchi, no rales , no accessory muscle use Abdominal: soft, nontender to palpation, no guarding, no appreciable organomegaly, maintain Bonilla catheter Ext: no gross muscle atrophy, no edema, no contractures Neuro: CN II-XI grossly intact, no focal neuro deficits Psych: Alert, oriented, appropriate affect Intractable back pain secondary to metastatic lung cancer with new L1 compression fracture -Orthopedic recommendations: Discussed with family about TLSO brace would mostly be for comfort, do not anticipate patient to be out of bed much -Continue with IV morphine and Ativan as needed. If pain is still uncontrolled would consider switching to morphine drip Dry mucous membranes -Mouth coat Dysphagia -Continue with soft diet, add Magic cup, family to bring in boost if desired Transaminitis, suspect disease process -No need to follow further -Continue with hospice care Objective - Vital Signs Vital signs: Vital Signs Temp 98.1 F 08/16/20 16:46 Pulse 100 08/16/20 08:00 Resp 16 08/16/20 08:00 BP 151/84 08/15/20 21:43 Pulse Ox 98 08/16/20 04:50 Intake & Output 08/15/20 08/16/20 08/16/20 18:59 06:59 18:59 Intake Total 5 Output Total 500 Balance -500 5 Weight 101 kg 101 kg Intake: Oral 5 Output: Urine 500 Uretheral (Bonilla) 500 Other: Voiding Method Indwelling Catheter Indwelling Catheter - Labs CBC & Chem 7: 08/15/20 15:41 08/15/20 15:41
[2020-08-16] MEDS: ATORVASTATIN 10 MG TAB PO SCH (20:33)
[2020-08-17] MEDS: MORPHINE SULFATE 2 MG/ML SYRINGE IVP PRN ×2 (00:53→04:12)
[2020-08-17] MEDS: LEVOTHYROXINE 100 MCG TAB PO SCH (05:54)
[2020-08-17] MEDS: amLODIPine 5 MG TAB PO SCH (08:06)
[2020-08-17] MEDS: predniSONE 10 MG TAB PO SCH (08:06)
[2020-08-17] MEDS: LIDOCAINE 2% GEL 30 ML TUBE TOPICAL SCH (08:06)
[2020-08-17] MEDS: DRY MOUTH SPRAY 44.3 SPRAY/44.3 ML SPRAY MUCOUS MEM SCH ×4 (08:06→21:56)
[2020-08-17] MEDS ORDERED: MORPHINE SULFATE ER 30 MG TABLET PO SCH (09:00)
[2020-08-17] MEDS: MORPHINE PCA 50 MG/50 ML BAG IV PRN (11:08)
--- NOTE | 2020-08-17 11:08 | P.PN ---
Progress Note - Text Progress Note Date: 08/17/20 Orthopedic spine: History of present illness: Patient is a very pleasant 79-year-old female who is seen and examined at the bedside for follow up evaluation for her known acute L1 compression fracture deformity. Patient states she did sustain a fall recently making her bed. She has had significant increased low back pain since that time. She states her pain is well-controlled while lying still in bed. Her pain is exacerbated when trying to get out of bed, with bending, and twisting. She has not been coughing or sneezing is unable to rate her pain in this regard. She denies any lower extremity weakness and radiculopathy bilaterally. 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 She is brought into the hospital for further evaluation she was having difficulty with pain control in the outpatient setting. Patient's pain has been much better controlled with morphine. Patient does state at the bedside she is unsure whether her is able to help care for her at home given his advanced age and feels discharge to a hospice facility may be a better plan of care. Patient was discussed with case management who is planning to place order for evaluation with the patient for possible discharged to a hospice facility. Patient continues to be seen and examined by medicine. Patient states at bedside she does not wish to have any surgical intervention in regards to her lumbar spine. Patient does have some difficulty with dysphagia as well. She is able drink water at the bedside without significant difficulty. Physical exam: Patient is awake, alert, and oriented 3 Vital signs stable Adequate chest excursion with deep inspiration and expiration No significant pain with palpation over the lumbosacral spine while the patient is lying comfortably in bed Dorsiflexion, plantarflexion, and extensor hallucis longus positive sustained bilaterally Lower extremity strength 5/5 bilaterally No signs or symptoms of DVT; no calf pain No pain with internal and external rotation of the hips bilaterally Neurovascularly intact Pertinent studies: CT of the thoracic and lumbar spine taken on 08/15/2020: Acute L1 superior endplate compression fracture deformity with approximately 25% height loss; chronic compression fracture deformities at T6 and T8 as compared to previous imaging taken on 10/12/2019 Assessment: Acute L1 superior endplate compression fracture deformity Status post fall Acute traumatic lumbar pain Chronic compression 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 After further discussion with the patient, physical examination the patient, and reviewing of imaging, we will plan for conservative treatment in regards to her acute traumatic L1 compression fracture deformity. She did recently sustained a fall has had increased lumbar pain since that time. Patient is currently under hospice care in the home setting for metastatic lung cancer. She has been under hospice care for the past 10 months. Patient states she does not wish to have any surgical intervention regards to her lumbar spine. We did discuss she could benefit with bracing when out of bed. At this time we'll plan to prescribe an Exos LSO brace. This brace may be worn for comfort and support as needed when out of bed. She could benefit from wearing this brace while sitting upright or during increased ambulation. Brace does not have to be worn while lying in bed or while bathing. At this time, patient may be planning for discharge to a hospice facility. We are not currently planning for any surgical intervention regards to her lumbar spine. Patient states she would not want any surgical intervention at her lumbar spine. Hospice will plan to control her pain medications at time of discharge. Given her discharge status to a hospice facility, we will plan have the patient follow up in the outpatient setting on as-needed basis. If while under hospice care patient will need further evaluation, hospice or the patient may call the office to set up follow-up evaluation in the outpatient setting.Patient may follow-up with Axel Benites PA-C or Dr. Darrick Jarrett at [facility] as needed following discharge. 2. Patient will continue to be seen and examined by medicine for treatment and evaluation
[2020-08-17] MEDS: MORPHINE SULFATE (100 MG/2 ML) 100 MG in SODIUM CHLORIDE 0.9% 100 ML IV SCH (11:09)
[2020-08-17 13:13] VITALS: BMI 35.9
--- NOTE | 2020-08-17 15:43 | P.PN ---
Subjective Progress Note Date: 08/17/20 (delayed charting seen at 0810) Principal diagnosis: intractable back pain Patient is an 79-year-old female with known lung cancer with bone metastases on hospice for the last 10 months who presented to the ER at the direction of her hospice nurse secondary to intractable back pain that has not been controlled by oral morphine. The patient underwent a CT thoracic and lumbar spine which showed an L1 compression fracture that was new as well as old T8 and T6 fractures. She was admitted for pain control to hospice. She was seen by orthopedic surgery who ordered a TLSO brace when out of bed. She is noted to have an elevated white blood cell count which was felt to be secondary to her chronic prednisone use. She was started on IV morphine. Her pain was better controlled with IV morphine. Patient seen and examined at bedside. We discussed gaols of care for a long aleksander e. She reflected on her decline since October 2019. She wants this to be over and she is in so much pain,she is either sleeping or in pain. She is unsure if she wants pain control that could potentially cause her to sleep more. She expresses concern about return home with her due to weakness. We discussed that hospice can provide a hospital bed and she can continue to have her you cath in place for comfort. She is concerned that she will be to much for her to care for. She says that she has excepted her fate and is ready when it is time, she again states that life is to painful at this point, General: Ill appearing, no distress, no facial grimacing, frail, cachectic, appears at stated age, temporal wasting, buccal fat wasting Derm: warm, dry Head: atraumatic, normocephalic, symmetric Eyes: EOMI, no lid lag, anicteric sclera Mouth: no lip lesion, mucus membranes dry, no thrush Cardiovascular: S1S2 reg, no murmur, positive posterior tibial pulse bilateral, Lungs: CTA bilateral, no rhonchi, no rales , no accessory muscle use Abdominal: soft, nontender to palpation, no guardg, no appreciable organomegaly, maintain You catheter Ext: no gross muscle atrophy, no edema, no contractures Neuro: CN II-XI grossly intact, no focal neuro deficits Psych: Alert, oriented, appropriate affect Intractable back pain secondary to metastatic lung cancer with new L1 compress ion fracture -Orthopedic recommendations: Discussed with family about TLSO brace would mostly be for comfort, do not anticipate patient to be out of bed much -d/w hospice, plan will be start morphine gtt with SUPERVISOR SAFETY DEPOSIT bolus as needed. Plans for home with hospice Dry mucous membranes -Mouth coat Dysphagia -Continue with soft diet, add Magic cup, family to bring in boost if desired Transaminitis, suspect disease process -No need to follow further -Continue with hospice care A total of 55 minutes of times spent on the complex care of this patient. Objective - Vital Signs Vital signs: Vital Signs Temp 98.1 F 08/17/20 11:53 Pulse 97 08/17/20 11:53 Resp 14 08/17/20 11:53 BP 121/75 08/17/20 11:53 Pulse Ox 98 08/17/20 11:53 Intake & Output 08/16/20 08/17/20 08/17/20 18:59 06:59 18:59 Intake Total 5 220 Output Total 300 Balance 5 -80 Weight 101 kg Intake: Oral 5 220 Output: Urine 300 Uretheral (You) 300 Other: Voiding Method Indwelling Catheter Indwelling Catheter Indwelling Catheter - Labs CBC & Chem 7: 08/15/20 15:41 08/15/20 15:41
[2020-08-17] MEDS: ATORVASTATIN 10 MG TAB PO SCH (19:59)
[2020-08-18] MEDS: LEVOTHYROXINE 100 MCG TAB PO SCH (05:29)
[2020-08-18 05:49] VITALS: TEMP 98.8
[2020-08-18] MEDS: LIDOCAINE 2% GEL 30 ML TUBE TOPICAL SCH (08:20)
[2020-08-18] MEDS: amLODIPine 5 MG TAB PO SCH (08:20)
[2020-08-18] MEDS: DRY MOUTH SPRAY 44.3 SPRAY/44.3 ML SPRAY MUCOUS MEM SCH ×4 (08:20→21:55)
[2020-08-18] MEDS: predniSONE 10 MG TAB PO SCH (08:20)
[2020-08-18] MEDS: MORPHINE SULFATE (100 MG/2 ML) 100 MG in SODIUM CHLORIDE 0.9% 100 ML IV SCH (16:55)
[2020-08-18] MEDS: MORPHINE PCA 50 MG/50 ML BAG IV PRN (16:56)
--- NOTE | 2020-08-18 17:38 | P.PN ---
Subjective Progress Note Date: 08/18/20 (delayed charting seen at 0830) Principal diagnosis: intractable back pain Patient is an 79-year-old female with known lung cancer with bone metastases on hospice for the last 10 months who presented to the ER at the direction of her hospice nurse secondary to intractable back pain that has not been controlled by oral morphine. The patient underwent a CT thoracic and lumbar spine which showed an L1 compression fracture that was new as well as old T8 and T6 fractures. She was admitted for pain control to hospice. She was seen by orthopedic surgery who ordered a TLSO brace when out of bed. She is noted to have an elevated white blood cell count which was felt to be secondary to her chronic prednisone use. She was started on IV morphine. Her pain was better controlled with IV morphine. She was converted baseline morphine infusion with GRAIN MILL PRODUCTS INSPECTOR for breakthrough pain. Patient seen and examined at bedside. Plan is for her to go somewhere for continued hospice care. Pain is much better controlled. She feels as though she continued set up and bedside today and is moving her legs more easily. She was able to eat a little today. She denies any chest pain or shortness of breath. General: Ill appearing, no distress, frail, cachectic, appears at stated age, temporal wasting, buccal fat wasting Derm: warm, dry Head: atraumatic, normocephalic, symmetric Eyes: EOMI, no lid lag, anicteric sclera Mouth: no lip lesion, mucus membranes moist, no thrush Cardiovascular: S1S2 reg, no murmur, positive posterior tibial pulse bilateral, Lungs: CTA bilateral, no rhonchi, no rales , no accessory muscle use Abdominal: soft, nontender to palpation, no guardg, no appreciable organomegaly, maintain Bonilla catheter Ext: no gross muscle atrophy, no edema, no contractures Neuro: CN II-XI grossly intact, no focal neuro deficits Psych: Alert, oriented, appropriate affect Intractable back pain secondary to metastatic lung cancer with new L1 compression fracture -Orthopedic recommendations: Discussed with family about TLSO brace would mostly be for comfort, do not anticipate patient to be out of bed much -Continue GRAIN MILL PRODUCTS INSPECTOR pump and morphine drip without titration. -Plan will be for discharge to hospice at a facility once arranged. Dry mucous membranes -Mouth coat Dysphagia -Continue with soft diet, add Magic cup, family to bring in boost if desired Transaminitis, suspect disease process -No need to follow further -Continue with hospice care A total of 35 minutes of times spent on the complex care of this patient. Objective - Vital Signs Vital signs: Vital Signs Temp 98.8 F 08/18/20 05:00 Pulse 87 08/18/20 05:00 Resp 20 08/18/20 05:00 BP 116/66 08/18/20 05:00 Pulse Ox 94 L 08/18/20 07:05 Intake & Output 08/17/20 08/18/20 08/18/20 18:59 06:59 18:59 Intake Total 480 132 750.362 Output Total 500 Balance 480 -368 750.362 Weight 101 kg Intake: IV 240 0.9 240 Intake, IV Titration 12 30.362 Amount Morphine Sulfate (100 mg/ 12 30.362 2 ml) 100 mg In Sodium Chloride 0.9% 100 ml @ 1 MG/HR 1.02 mls/hr IV . Q24H [facility] Rx#:[id number] Oral 480 120 480 Output: Urine 500 Uretheral (Bonilla) 500 Other: Voiding Method Indwelling Catheter Indwelling Catheter Indwelling Catheter - Labs CBC & Chem 7: 08/15/20 15:41 08/15/20 15:41
[2020-08-18] MEDS: ATORVASTATIN 10 MG TAB PO SCH (20:28)
[2020-08-18 20:43] VITALS: RESP 16
[2020-08-19] MEDS: LEVOTHYROXINE 100 MCG TAB PO SCH (05:46)
[2020-08-19] MEDS: amLODIPine 5 MG TAB PO SCH (09:15)
[2020-08-19] MEDS: predniSONE 10 MG TAB PO SCH (09:15)
[2020-08-19] MEDS: DRY MOUTH SPRAY 44.3 SPRAY/44.3 ML SPRAY MUCOUS MEM SCH (09:18)
[2020-08-19] MEDS: LIDOCAINE 2% GEL 30 ML TUBE TOPICAL SCH (09:19)
[2020-08-19 13:42] VITALS: BP 107/67; PULSE 96
--- NOTE | 2020-08-19 21:53 | P.DS ---
Providers Date of admission: 08/15/20 20:40 Expected date of discharge: 08/19/20 Attending physician: Meli Bynum MD Consults: 08/16/20 01:35 Consult Physician Routine Consulting Provider: Conner Jarrett Consult Reason/Comments: new L1 fracture intractable pain Do you want consulting provider notified?: Yes, Notify in am Primary care physician: Stated None Hospital Course: Discharge Diagnosis: Intractable back pain secondary to metastatic lung cancer with new L1 compression fracture Dry mucous membranes Dysphagia Transaminitis, suspect disease process Hospital Course: Patient is an 79-year-old female with known lung cancer with bone metastases on hospice for the last 10 months who presented to the ER at the direction of her hospice nurse secondary to intractable back pain that has not been controlled by oral morphine. The patient underwent a CT thoracic and lumbar spine which showed an L1 compression fracture that was new as well as old T8 and T6 fractures. She was admitted for pain control to hospice. She was seen by orthopedic surgery who ordered a TLSO brace when out of bed. She is noted to have an elevated white blood cell count which was felt to be secondary to her chronic prednisone use. She was started on IV morphine. Her pain was better controlled with IV morphine. She was converted baseline morphine infusion with CHUCKING MACHINE SET UP OPERATOR for breakthrough pain. This controlled her pain well. Determined stable for discharge to hospice facility where she will have a CHUCKING MACHINE SET UP OPERATOR with morphine run amy at basal and bolus. Patient seen and examined at bedside. Pain is well controlled. She is able to move better. Denies any nausea or vomiting. Her appetite is coming back. Feels better that she is going to a facility with hospice as her was struggling to care for her at home. Vital signs reviewed and stable. General: non toxic, no distress, appears at stated age, frail, cachectic, loss of fat pad Derm: warm, dry Head: atraumatic, normocephalic, symmetric Eyes: EOMI, no lid lag, anicteric sclera Mouth: no lip lesion, mucus membranes dry Cardiovascular: S1S2 reg, no murmur, positive posterior tibial pulse bilateral, Lungs: CTA bilateral, no rhonchi, no rales , no accessory muscle use Abdominal: soft, nontender to palpation, no guarding, no appreciable organomegaly Ext: no gross muscle atrophy, no edema, no contractures Neuro: CN II-XI grossly intact, no focal neuro deficits Psych: Alert, oriented, appropriate affect A total of 32 minutes of time were spent preparing this complex discharge summary . Patient Condition at Discharge: Fair Plan - Discharge Summary Discharge Rx Participant: Yes New Discharge Prescriptions: New Atropine Ophth Soln 1% 5Ml [Isopto Atropine 1% 5Ml] 2 drops SUBLINGUAL Q4HR PRN bottle PRN Reason: Excess Secretions Continue amLODIPine [Norvasc] 5 mg PO DAILY Simvastatin [Zocor] 10 mg PO HS predniSONE 10 mg PO DAILY Levothyroxine Sodium 100 mcg PO DAILY Albuterol Inhaler [Ventolin Hfa Inhaler] 1 puff INHALATION RT-QID PRN PRN Reason: Shortness Of Breath Polyethylene Glycol 3350 [Miralax] 17 gm PO DAILY PRN PRN Reason: Constipation Docusate [Colace] 100 mg PO DAILY PRN PRN Reason: Constipation Ondansetron [Zofran] 4 mg PO Q6H PRN PRN Reason: Nausea guaiFENesin [Mucinex] 600 mg PO DAILY PRN PRN Reason: Congestion Sennosides [Senna] 8.6 mg PO BID PRN PRN Reason: Constipation dronabinoL [Marinol] 2.5 mg PO AC-BID Lidocaine 5% Oint [Xylocaine 5% Oint] 1 applic TOPICAL DAILY Ipratropium-Albuterol Nebulize [Duoneb 0.5 mg-3 mg/3 ml Soln] 3 ml INHALATION RT-QID PRN PRN Reason: Shortness Of Breath LORazepam [Ativan] 0.5 mg PO Q4H PRN PRN Reason: Anxiety Discontinued metHOTREXate sodium [Methotrexate] 15 mg PO TH Aspirin [Children's Aspirin] 81 mg PO DAILY Celecoxib [CeleBREX] 200 mg PO BID Codeine Phosphate/Guaifenesin [Guaifen-Codeine 100-10 mg/5 ml] 10 ml PO Q4H P RN PRN Reason: Cough Ibuprofen [Motrin] 400 mg PO DAILY MORPHINE ORAL RONDA CONC 20mg/mL [Roxanol Oral Soln Conc 20MG/ML] 10 mg PO Q4HR PRN PRN Reason: Pain Cyclobenzaprine [Flexeril] 10 mg PO Q8H PRN PRN Reason: Muscle Spasm Morphine Sulfate ER [Ms Contin] 30 mg PO Q12HR Discharge Medication List Simvastatin [Zocor] 10 mg PO HS 09/19/17 [History] amLODIPine [Norvasc] 5 mg PO DAILY 09/19/17 [History] Albuterol Inhaler [Ventolin Hfa Inhaler] 1 puff INHALATION RT-QID PRN 10/12/19 [History] Levothyroxine Sodium 100 mcg PO DAILY 10/12/19 [History] predniSONE 10 mg PO DAILY 10/12/19 [History] Docusate [Colace] 100 mg PO DAILY PRN 08/15/20 [History] Ipratropium-Albuterol Nebulize [Duoneb 0.5 mg-3 mg/3 ml Soln] 3 ml INHALATION RT-QID PRN 08/15/20 [History] LORazepam [Ativan] 0.5 mg PO Q4H PRN 08/15/20 [History] Lidocaine 5% Oint [Xylocaine 5% Oint] 1 applic TOPICAL DAILY 08/15/20 [History] Ondansetron [Zofran] 4 mg PO Q6H PRN 08/15/20 [History] Polyethylene Glycol 3350 [Miralax] 17 gm PO DAILY PRN 08/15/20 [History] Sennosides [Senna] 8.6 mg PO BID PRN 08/15/20 [History] dronabinoL [Marinol] 2.5 mg PO AC-BID 08/15/20 [History] guaiFENesin [Mucinex] 600 mg PO DAILY PRN 08/15/20 [History] Atropine Ophth Soln 1% 5Ml [Isopto Atropine 1% 5Ml] 2 drops SUBLINGUAL Q4HR PRN bottle 08/19/20 [Rx] Follow up Appointment(s)/Referral(s): None,Stated [Primary Care Provider] - 1-2 days Activity/Diet/Wound Care/Special Instructions: 1. Patient with a wear LSO brace when sitting upright, when out of bed, and during ambulation 2. LSO brace is not have to worn while lying in bed or bathing 3. Patient should avoid excessive bending, twisting, lifting activities; no lifting greater than 10 pounds Discharge Disposition: HOME WITH HOSPICE
== END 2020-08-19 17:42 | disposition hospice, home (50) | DRG 951 ==
LOC: EC 14:15 → 5NMEDONC 20:40
PROVIDERS: ADMIT Internal Medicine; ATTEND Internal Medicine
DX: Z51.5 Encounter for palliative care (principal); C34.90 Malignant neoplasm of unspecified part of unspecified bronchus or lung; C79.51 Secondary malignant neoplasm of bone; M48.56XA Collapsed vertebra, not elsewhere classified, lumbar region, initial encounter for fracture; R64 Cachexia; E78.5 Hyperlipidemia, unspecified; G89.3 Neoplasm related pain (acute) (chronic); R13.10 Dysphagia, unspecified; I10 Essential (primary) hypertension; M06.9 Rheumatoid arthritis, unspecified; Z79.1 Long term (current) use of non-steroidal anti-inflammatories (NSAID); Z79.52 Long term (current) use of systemic steroids; Z79.82 Long term (current) use of aspirin; Z20.822 Contact with and (suspected) exposure to COVID-19; Z79.890 Hormone replacement therapy; Z79.899 Other long term (current) drug therapy; Z80.6 Family history of leukemia; Z80.7 Family history of other malignant neoplasms of lymphoid, hematopoietic and related tissues; Z85.118 Personal history of other malignant neoplasm of bronchus and lung; Z85.820 Personal history of malignant melanoma of skin; Z96.652 Presence of left artificial knee joint
CPT/HCPCS: 36415; 72128; 72131; 80053; 85025; 87635; 94760; 96360; 99285